=== PATIENT | female | born 1940 | race Caucasian/White ===

== ENCOUNTER 2017-04-02 10:55 | Observation (INO) | payer MEDICARE ==
[~2017-04-02 10:55] MED LIST: ALBU8I INH; AZIT250T74 PO; ECOT81TA2 PO; FLOV44AE INH; GUAI600 PO; PRED10 PO; PRED10PA PO; Z.0.OXYGENDME NC
[2017-04-02 11:00] VITALS: BP 119/65; TEMP 98.2; O2SAT 96
--- NOTE | 2017-04-02 11:04 | PD ---
Physical Exam Time Seen by Provider: 11:02 Narrative 76 y/o female here for evaluation of dizziness, vomiting w/ dry heaves, substernal cp at 340 AM this morning. This lasted 30 minutes. Denies current chest pain. Vital signs reviewed. Seen at triage desk. Awaiting bed placement. Data Data Last Documented VS Vital Signs Date Time Temp Pulse Resp B/P Pulse Ox O2 Delivery O2 Flow Rate FiO2 04/02/17 11:00 98.2 98 15 119/65 96 MDM Medical Record Reviewed: Yes Supervised Visit with ИВАН: Amilcar Rodriguez Apr 02, 2017 11:04
[2017-04-02 11:16] VITALS: BP 140/66; PULSE 92; RESP 18; TEMP 98.1; O2SAT 97
--- NOTE | 2017-04-02 11:38 | PD ---
HPI Chief Complaint: Cardiac Complaint Time Seen by Provider: 11:18 Travel History International Travel<30 days: No Contact w/Intl Traveler<30days: No Traveled to known affect area: No History of Present Illness HPI 76-year-old female came to the emergency room with history of lightheadedness followed by severe chest pain radiating down her left arm at 2 AM today. Patient says she took one or 2 full-strength aspirin and used her oxygen that she takes when necessary and went back to sleep and slowly subsided. However this morning when her son called and she told him what happened he insisted that she should go to the emergency room. Since is currently she just feels weak but otherwise the pain is gone. No history of nausea vomiting. Patient has never experienced this kind of pain before. She had a cardiac catheterization done 5 years ago and at that time she was told that she had clean coronary arteries. Vital signs were otherwise stable. PFSH Past Medical History Narrative Medical List of her past medical, surgical, social and family history was reviewed from the nursing note. 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) Cardiac Catheterization: Yes Cardiovascular Problems: No High Cholesterol: No Chemotherapy: No Chest Pain: No Congestive Heart Failure: No COPD: Yes (DX IN 2011) Cerebrovascular Accident: No Coronary Artery Disease: No Diabetes: No Diminished Hearing: No Endocrine: No Gastrointestinal Disorders: No GERD: Yes Genitourinary: Yes (NOV 2010) Headaches: No Hepatitis: No Hiatal Hernia: No Heparin Induced Thrombocytopen: No Hypertension: No Immune Disorder: No Implanted Vascular Access Dvce: No Kidney Stones: Yes (STENT PLACED AND REMOVED X2) Medical other: No Musculoskeletal: No Neurologic: No Psychiatric: No Reproductive: No Respiratory: Yes Integumentary: No Migraines: No Radiation Therapy: No Renal Failure: No Seizures: No Sickle Cell Disease: No Sleep Apnea: No Thyroid Disease: No Ulcer: No Menopausal: Yes Past Surgical History Abdominal Surgery: No AICD: No Arteriovenous Shunt: No Coronary Stent: Yes Ear Surgery: No Endocrine Surgery: No Eye Surgery: No Genitourinary Surgery: Yes (URETHRAL STENT put in 5 years ago and now is not there) Gynecologic Surgery: No Insulin Pump: No Joint Replacement: No Neurologic Surgery: No Oral Surgery: No Pacemaker: No (hx. of cardiac catherazation) Thoracic Surgery: No Other Surgery: No (HAS CYSTITIS AND A CANCER REMOVED FROM HER FACE) Social History Alcohol Use: No Tobacco Use: No Substance Use: No Allergies-Medications (Allergen,Severity, Reaction): Coded Allergies: Codeine (Verified Allergy, Severe, N/V/PASSING OUT, 05/28/16) Hydrocodone (Verified Allergy, Severe, Tingling, 05/28/16) Levaquin (Verified Allergy, Severe, 05/28/16) Lortab (Verified Allergy, Severe, Shortness of Breath, 05/28/16) Macrobid (Verified Allergy, Severe, Tingling, 05/28/16) Prevacid (Verified Allergy, Severe, 05/28/16) unrecalled reaction Tylenol (Verified Allergy, Severe, ITCHING, NAUSEA, 05/28/16) Comments List of her allergies reviewed from the nursing note. Reported Meds & Prescriptions Reported Meds & Active Scripts Active Reported Ergocalciferol 50,000 Unit Cap 50,000 Units PO SUNDAY Albuterol Neb (Albuterol Sulfate) 2.5 Mg/3 Ml Neb 2.5 Mg NEB Q6HR NEB PRN While awake Eq Mucus ER (Guaifenesin) 600 Mg Tab 600 Mg PO BID PRN Flovent Hfa 10.6 GM Inh (Fluticasone Propionate) 44 Mcg/Act Inh 2 Puff INH BID Use daily at the same time. Ventolin Hfa 18 GM Inh (Albuterol Sulfate) 90 Mcg/Act Aer 2 Puff INH Q6H PRN Aspirin EC (Aspirin) 81 Mg Tabdr 81 Mg PO DAILY Prednisone 10 Mg Tab 10 Mg PO DAILY Narrative Medication List of her home medications reviewed from the nursing note. Review of Systems Except as stated in HPI: all other systems reviewed are Neg Physical Exam Narrative GENERAL: Awake, alert, elderly, frail SKIN: Focused skin assessment warm/dry. HEAD: Atraumatic. Normocephalic. EYES: Pupils equal and round. No scleral icterus. No injection or drainage. ENT: No nasal bleeding or discharge. Mucous membranes pink and moist. NECK: Trachea midline. No JVD. CARDIOVASCULAR: Regular rate and rhythm. No murmur appreciated. RESPIRATORY: No accessory muscle use. Clear to auscultation. Breath sounds equal bilaterally. GASTROINTESTINAL: Abdomen soft, non-tender, nondistended. Hepatic and splenic margins not palpable. MUSCULOSKELETAL: No obvious deformities. No clubbing. No cyanosis. No edema. NEUROLOGICAL: Awake and alert. No obvious cranial nerve deficits. Motor grossly within normal limits. Normal speech. PSYCHIATRIC: Appropriate mood and affect; insight and judgment normal. Data Data Last Documented VS Vital Signs Date Time Temp Pulse Resp B/P Pulse Ox O2 Delivery O2 Flow Rate FiO2 04/02/17 12:11 85 114/63 140/78 04/02/17 12:07 95 Room Air 04/02/17 12:07 18 04/02/17 11:16 98.1 Orders Electrocardiogram (04/02/17 11:47) Basic Metabolic Panel (Bmp) (04/02/17 11:47) Ckmb (Isoenzyme) Profile (04/02/17 11:47) Complete Blood Count With Diff (04/02/17 11:47) Magnesium (Mg) (04/02/17 11:47) Prothrombin Time / Inr (Pt) (04/02/17 11:47) Act Partial Throm Time (Ptt) (04/02/17 11:47) Troponin I (04/02/17 11:47) Chest, Single Ap (04/02/17 11:47) Ecg Monitoring (04/02/17 11:47) Bilateral Bp Monitoring (04/02/17 11:47) Iv Access Insert/Monitor (04/02/17 11:47) Oximetry (04/02/17 11:47) Oxygen Administration (04/02/17 11:47) Sodium Chloride 0.9% Flush (Ns Flush) (04/02/17 12:00) Labs Laboratory Tests Test 04/02/17 12:05 White Blood Count 6.0 TH/MM3 Red Blood Count 4.79 MIL/MM3 Hemoglobin 13.7 GM/DL Hematocrit 42.6 % Mean Corpuscular Volume 88.9 FL Mean Corpuscular Hemoglobin 28.6 PG Mean Corpuscular Hemoglobin 32.2 % Concent Red Cell Distribution Width 14.9 % Platelet Count 200 TH/MM3 Mean Platelet Volume 9.3 FL Neutrophils (%) (Auto) 85.4 % Lymphocytes (%) (Auto) 8.6 % Monocytes (%) (Auto) 4.4 % Eosinophils (%) (Auto) 1.0 % Basophils (%) (Auto) 0.6 % Neutrophils # (Auto) 5.1 TH/MM3 Lymphocytes # (Auto) 0.5 TH/MM3 Monocytes # (Auto) 0.3 TH/MM3 Eosinophils # (Auto) 0.1 TH/MM3 Basophils # (Auto) 0.0 TH/MM3 CBC Comment DIFF FINAL Differential Comment Prothrombin Time 10.6 SEC Prothromb Time International 1.0 RATIO Ratio Activated Partial 23.7 SEC Thromboplast Time Sodium Level 141 MEQ/L Potassium Level 4.4 MEQ/L Chloride Level 106 MEQ/L Carbon Dioxide Level 29.5 MEQ/L Anion Gap 6 MEQ/L Blood Urea Nitrogen 10 MG/DL Creatinine 0.60 MG/DL Estimat Glomerular Filtration 97 ML/MIN Rate Random Glucose 104 MG/DL Calcium Level 8.7 MG/DL Magnesium Level 2.4 MG/DL Total Creatine Kinase 60 U/L Troponin I LESS THAN 0.02 NG/ML MDM Medical Decision Making Medical Screen Exam Complete: Yes Emergency Medical Condition: Yes Medical Record Reviewed: Yes Interpretation(s) Twelve-lead EKG was reviewed by me. Normal sinus rhythm, left axis deviation, old anterior and inferior ND, nonspecific ST-T wave changes. Heart rate of 96 bpm. EKG is unchanged from April 2016. Differential Diagnosis ACS, non-STEMI, PE Narrative Course 12:30 PM awaiting for blood test results and chest x-ray. I told the patient that her symptoms were strongly suggestive of possible coronary artery disease until proven otherwise. The symptoms could also somehow be related to a massive PE. However patient did not have recent long distance immobilization due to travel or surgery. And she has never had previous PE. Given the fact that she is 76 years old and new onset of PE is highly unlikely, hence I have not ordered any further workup for that. The blood tests are within normal limits she will be admitted for overnight observation. Procedures EKG Prior to Arrival: No Diagnosis Primary Impression: Chest pain Qualified Code: R07.9 - Chest pain, unspecified type Admitting Information Admitting Physician Requests: Observation Monty Candelario MD Apr 02, 2017 11:38 Monty Candelario MD Apr 02, 2017 11:38
[2017-04-02] MEDS ORDERED: SODIUM CHLORIDE 0.9% FLUSH 10 ML FLUSH IVF PRN (12:00)
[2017-04-02 12:07] VITALS: RESP 18; O2SAT 95
[2017-04-02 12:11] VITALS: BP_SYST 114; BP_SYST 140; BP_DIAS 63; BP_DIAS 78; PULSE 85
[2017-04-02 12:33] LABS: AUTOMATED NEUTROPHIL # 5.1 TH/MM3 (1.8-7.7); BASOPHIL % 0.6 % (0.0-2.0); EOSINOPHIL # 0.1 TH/MM3 (0-0.4); HEMATOCRIT 42.6 % (35.0-46.0); HEMO FLAGS DIFF FINAL; LYMPH % 8.6 % (9.0-44.0); LYMPHOCYTE # 0.5 TH/MM3 (1.0-4.8); MEAN CELL VOLUME 88.9 FL (80.0-100.0); MEAN CORPUSCULAR HEMOGLOBIN 28.6 PG (27.0-34.0); MEAN CORPUSCULAR HGB CONC 32.2 % (32.0-36.0); MONO % 4.4 % (0.0-8.0); NEUT % 85.4 % (16.0-70.0); PLATELET COUNT 200 TH/MM3 (150-450); RED BLOOD COUNT 4.79 MIL/MM3 (4.00-5.30); RED CELL DISTRIBUTION WIDTH 14.9 % (11.6-17.2)
[2017-04-02 12:38] LABS: APTT (PATIENT) 23.7 SEC (24.3-30.1); PROTHROMBIN TIME - PATIENT 10.6 SEC (9.8-11.6)
--- NOTE | 2017-04-02 12:39 | RADRPT ---
EXAM DATE/TIME: 04/02/2017 12:16 [facility] COMPARISON: CT PULMONARY ANGIOGRAM, May 28, 2016, 13:27. CHEST SINGLE AP, May 28, 2016, 10:58. INDICATIONS : Chest pressure and discomfort. MEDICAL HISTORY : Chronic obstructive pulmonary disease. Cardiovascular disease. SURGICAL HISTORY : Cardiac cath. Coronary stent. ENCOUNTER: Initial ACUITY: 1 day PAIN SCORE: 3/10 LOCATION: Bilateral chest FINDINGS: The heart is normal in size. The mediastinal contours are within normal limits. There are advanced CO PD changes within the pulmonary parenchyma. The lungs are stable compared to previous examination lisa ed 05/28/16. The visualized bony structures are grossly intact. CONCLUSION: 1. Advanced COPD changes. Stable compared to previous exam. Serafin Bensno MD on April 02, 2017 at 12:37 Board Certified Radiologist. This report was verified electronically.
[2017-04-02 12:58] LABS: ANION GAP 6 MEQ/L (5-15); BICARBONATE 29.5 MEQ/L (21.0-32.0); BLOOD UREA NITROGEN 10 MG/DL (7-18); CHLORIDE 106 MEQ/L (98-107); GLOMERULAR FILTRATION RATE 97 ML/MIN (>89); MAGNESIUM 2.4 MG/DL (1.5-2.5); SODIUM (NA) 141 MEQ/L (136-145)
[2017-04-02 13:01] LABS: CREATINE KINASE 60 U/L (26-192); POTASSIUM 4.4 MEQ/L (3.5-5.1)
[2017-04-02] MEDS ORDERED: PRED10 PO (14:33)
[2017-04-02] MEDS ORDERED: ASPI81TA11 PO (14:33)
[2017-04-02] MEDS ORDERED: VENTAER INH (14:33)
[2017-04-02] MEDS ORDERED: GUAI1TAB15 PO (14:34)
[2017-04-02] MEDS ORDERED: FLUTI44I INH (14:34)
[2017-04-02] MEDS ORDERED: ALBU0.08 NEB (14:35)
[2017-04-02] MEDS ORDERED: ERGO1CAP30 PO (14:35)
[2017-04-02] MEDS ORDERED: NALOXONE HCL 0.4 MG/ML AMP IV PRN (15:15)
[2017-04-02] MEDS ORDERED: ACETAMINOPHEN 325 MG TAB PO PRN (15:15)
[2017-04-02] MEDS ORDERED: ONDANSETRON HCL 4 MG/2 ML VIAL IVP PRN (15:15)
[2017-04-02] MEDS ORDERED: SODIUM CHLORIDE 0.9% FLUSH 10 ML FLUSH IV FLUSH PRN (15:15)
[2017-04-02] MEDS ORDERED: ALBUTEROL SULFATE 90 MCG/ACT HFA 18 GM INHALER INH PRN (15:30)
[2017-04-02] MEDS ORDERED: ALBUTEROL SULFATE 90 MCG/ACT HFA 8 GM INHALER INH PRN (15:30)
[2017-04-02 16:55] VITALS: BP 100/63; PULSE 79; RESP 20; TEMP 97.8; O2SAT 98
--- NOTE | 2017-04-02 17:28 | HHI.HP ---
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 Patient is well known to the undersigned from previous admissions for COPD. States that she had actually been doing well and her COPD had been stable, she follows up regularly with Dr. Gil's nurse practitioner. Patient endorses that a few weeks ago her partial lower bridge broke and she hasn't been eating very much except for soft foods and nutritional supplements. She's been feeling more weak and fell that she was getting dehydrated. This morning around 3 AM she felt thirsty and got up to the kitchen to have a draining. She drank some water and suddenly started to develop dry heaves. She continued to try to drink water but continued to 2 heaves. After that she developed severe chest discomfort from neck the way down to the epigastric, it was severe. It felt like something was sitting on her and squeezing her. She felt very weak and clammy. She crawled to her bedroom, put on her oxygen and lay back down. She also took 2 full strength aspirin. States that she occasionally has what she calls esophageal spasms and she takes Tums as needed however this pain was different. She saw Dr. Cano approximately in 2011 and had a cardiac catheter that showed normal coronaries. She finally decided to come to the hospital on 11 AM at the prompting of her family. Patient states that the pain is now relieved, shortness of breath is stable. She is on oxygen 24 hours a day. She denies any recent fever, no chills. Troponin was negative. The rest of her laboratory workup was unremarkable. Patient is admitted for further evaluation and treatment. Review of Systems Constitutional: DENIES: Diaphoretic episodes, Fatigue, Fever, Weight gain, Weight loss, Chills, Dizziness, Change in appetite, Night Sweats Endocrine: DENIES: Abnorml menstrual pattern, Heat/cold intolerance, Polydipsia , Polyuria, Polyphagia Eyes: DENIES: Blurred vision, Diplopia, Eye inflammation, Eye pain, Vision loss , Photosensitivity, Double Vision Ears, nose, mouth, throat: DENIES: Tinnitus, Hearing loss, Vertigo, Nasal discharge, Oral lesions, Throat pain, Hoarseness, Ear Pain, Running Nose, Epistaxis, Sinus Pain, Toothache, Odynophagia Respiratory: COMPLAINS OF: Wheezing, Shortness of breath, DENIES: Apneas, Cough, Snoring, Hemoptysis, Sputum production Cardiovascular: COMPLAINS OF: Chest pain, DENIES: Palpitations, Syncope, Dyspnea on Exertion, PND, Lower Extremity Edema, Orthopnea, Claudication Gastrointestinal: DENIES: Abdominal pain, Black stools, Bloody stools, Constipation, Diarrhea, Nausea, Vomiting, Difficulty Swallowing, Anorexia Musculoskeletal: DENIES: Joint pain, Muscle aches, Stiffness, Joint Swelling, Back pain, Neck pain Integumentary: DENIES: Abnormal pigmentation, Pruritus, Rash, Nail changes, Breast masses, Breast skin changes, Nipple discharge Hematologic/lymphatic: DENIES: Bruising, Lymphadenopathy Immunologic/allergic: DENIES: Eczema, Urticaria Neurologic: DENIES: Abnormal gait, Headache, Localized weakness, Paresthesias, Seizures, Speech Problems, Tremor, Poor Balance Psychiatric: DENIES: Anxiety, Confusion, Mood changes, Depression, Hallucinations, Agitation, Suicidal Ideation, Homicidal Ideation, Delusions Past Family Social History Past Medical History End-stage COPD oxygen dependent, Mycobacterium avium infection, cardiomyopathy, recent Echo with EF 55-60%, renal stones, GERD, previous cardiac cath with normal coronaries, recently admitted for chest pain with negative cardiac work up. Has been on mechanical ventilation. Ureter stents, cystoscopy. Pseudomona lung infections. Past Surgical History Cardiac cath Ureteral stents placed and removed Basal cell carcinoma removed from face Cataract surgery Reported Medications Reported Meds & Active Scripts Active Reported Ergocalciferol 50,000 Unit Cap 50,000 Units PO SUNDAY Albuterol Neb (Albuterol Sulfate) 2.5 Mg/3 Ml Neb 2.5 Mg NEB Q6HR NEB PRN While awake Eq Mucus ER (Guaifenesin) 600 Mg Tab 600 Mg PO BID PRN Flovent Hfa 10.6 GM Inh (Fluticasone Propionate) 44 Mcg/Act Inh 2 Puff INH BID Use daily at the same time. Ventolin Hfa 18 GM Inh (Albuterol Sulfate) 90 Mcg/Act Aer 2 Puff INH Q6H PRN Aspirin EC (Aspirin) 81 Mg Tabdr 81 Mg PO DAILY Prednisone 10 Mg Tab 10 Mg PO DAILY Allergies: Coded Allergies: Codeine (Verified Allergy, Severe, N/V/PASSING OUT, 05/28/16) Hydrocodone (Verified Allergy, Severe, Tingling, 05/28/16) Levaquin (Verified Allergy, Severe, 05/28/16) Lortab (Verified Allergy, Severe, Shortness of Breath, 05/28/16) Macrobid (Verified Allergy, Severe, Tingling, 05/28/16) Prevacid (Verified Allergy, Severe, 05/28/16) unrecalled reaction Tylenol (Verified Allergy, Severe, ITCHING, NAUSEA, 05/28/16) Active Ordered Medications Inpatient Medications Albuterol Sulfate (Albuterol Neb) 2.5 mg Q6HR NEB PRN NEB SHORTNESS OF BREATH; Start 04/02/17 at 15:30 Albuterol Sulfate (Ventolin Hfa Inh) 2 puff Q6H PRN INH SHORTNESS OF BREATH; Start 04/02/17 at 15:30 Aspirin (Ecotrin Ec) 81 mg DAILY PO ; Start 04/03/17 at 09:00 Fluticasone Propionate (Flovent Hfa 44 Mcg Inh) 2 puff BID INH ; Start 04/02/17 at 21:00 Heparin Sodium (Porcine) (Heparin Inj) 5,000 units Q12H SQ ; Start 04/02/17 at 16 :00 Naloxone HCl (Narcan Inj) 0.4 mg UNSCH PRN IV SEE LABEL COMMENTS; Start at 15:15 Ondansetron HCl (Zofran Inj) 4 mg Q6H PRN IVP NAUSEA OR VOMITING; Start at 15:15 Prednisone (Deltasone) 10 mg DAILY PO ; Start 04/03/17 at 09:00 Sodium Chloride (NS Flush) 2 ml BID IV FLUSH ; Start 04/02/17 at 21:00 Family History Reviewed, non contributory Social History Has 4 daughters, lives with one daughter who is deaf/mute and grandson. She is independent, still drives and takes care of her own home, finances. Was on hospice. No smoking, no ETOH, no substance abuse. + environmental exposure that lead to frequent pulmonary infections. Physical Exam Vital Signs Vital Signs Date Time Temp Pulse Resp B/P Pulse Ox O2 Delivery O2 Flow Rate FiO2 04/02/17 12:11 85 114/63 140/78 04/02/17 12:07 95 Room Air 04/02/17 12:07 18 95 Room Air 04/02/17 11:16 98.1 92 18 140/66 97 Room Air 04/02/17 11:16 87 18 97 Room Air 04/02/17 11:00 98.2 98 15 119/65 96 Physical Exam GENERAL: This is a thin built, malnourished female. SKIN: Skin fragile, some bruising to the lower extremities. HEAD: Atraumatic. Normocephalic. No temporal or scalp tenderness. EYES: Pupils equal round and reactive. Extraocular motions intact. No scleral icterus. No injection or drainage. ENT: Nose without bleeding, purulent drainage or septal hematoma. Throat without erythema, tonsillar hypertrophy or exudate. Uvula midline. Airway patent. NECK: Trachea midline. No JVD or lymphadenopathy. Supple, nontender, no meningeal signs. CARDIOVASCULAR: Regular rate and rhythm without murmurs, gallops, or rubs. RESPIRATORY: Diminished, prolonged expiratory phase. No distress noted. On oxygen at 2 L. GASTROINTESTINAL: Abdomen soft, non-tender, nondistended. No hepato-splenomegaly , or palpable masses. No guarding. MUSCULOSKELETAL: Extremities without clubbing, cyanosis, or edema. No joint tenderness, effusion, or edema noted. No calf tenderness. Negative Homans sign bilaterally. NEUROLOGICAL: Awake, alert oriented 3. No focal deficits Laboratory Laboratory Tests Test 04/02/17 12:05 White Blood Count 6.0 Red Blood Count 4.79 Hemoglobin 13.7 Hematocrit 42.6 Mean Corpuscular Volume 88.9 Mean Corpuscular Hemoglobin 28.6 Mean Corpuscular Hemoglobin 32.2 Concent Red Cell Distribution Width 14.9 Platelet Count 200 Mean Platelet Volume 9.3 Neutrophils (%) (Auto) 85.4 Lymphocytes (%) (Auto) 8.6 Monocytes (%) (Auto) 4.4 Eosinophils (%) (Auto) 1.0 Basophils (%) (Auto) 0.6 Neutrophils # (Auto) 5.1 Lymphocytes # (Auto) 0.5 Monocytes # (Auto) 0.3 Eosinophils # (Auto) 0.1 Basophils # (Auto) 0.0 CBC Comment DIFF FINAL Differential Comment Prothrombin Time 10.6 Prothromb Time International 1.0 Ratio Activated Partial 23.7 Thromboplast Time Sodium Level 141 Potassium Level 4.4 Chloride Level 106 Carbon Dioxide Level 29.5 Anion Gap 6 Blood Urea Nitrogen 10 Creatinine 0.60 Estimat Glomerular Filtration 97 Rate Random Glucose 104 Calcium Level 8.7 Magnesium Level 2.4 Total Creatine Kinase 60 Troponin I LESS THAN 0.02 Result Diagram: 04/02/17 1205 04/02/17 1205 Assessment and Plan Problem List: (1) Chest pain (2) Oxygen dependent (3) End stage COPD (4) History of MAC infection Assessment and Plan Admit to Dr. Marie 76-year-old female with end-stage COPD on oxygen, presented to the emergency room with severe chest discomfort after she drank water, she had dry heaves, felt clammy. Pain was relieved by aspirin and rest. First set of troponin is negative. Cardiac catheter in 2011 with normal coronaries. -Continue with serial cardiac enzymes -Continue with aspirin -Cardiology has been consulted for evaluation -Continuous cardiac telemetry COPD, oxygen dependent, stable Continue with DuoNeb's -Continue with prednisone 10 mg by mouth daily -Continue with oxygen at 2 L Home medications reviewed, initiated as indicated Heparin for DVT prophylaxis Plan of care discussed with the patient and her son, their questions answered in detail. Plan of care discussed with attending and registered nurse. Further management of the patient will be dependent on the hospital course This patient was seen by myself and Dr. Marie, this H&P is written on her behalf Problem Qualifiers (1) Chest pain: Qualified Code: R07.9 - Chest pain, unspecified type Nela Jay Apr 02, 2017 17:28
[2017-04-02] MEDS ORDERED: CALCIUM CARBONATE 500 MG CHEWABLE TAB CHEW PRN (17:45)
[2017-04-02] MEDS: HEPARIN SODIUM - SQ 10,000 UNITS/ML VIAL SQ SCH (18:32)
[2017-04-02 20:00] VITALS: BP 80/51; PULSE 82; RESP 18; TEMP 96.9; O2SAT 96
[2017-04-02] MEDS: FLUTICASONE PROPIONATE 44 MCG/ACT 10.6 GM INHALER INH SCH (22:35)
[2017-04-02] MEDS: SODIUM CHLORIDE 0.9% FLUSH 10 ML FLUSH IV FLUSH SCH (22:35)
[2017-04-03] VITALS (11 sets, daily range): BP systolic 89–126; BP diastolic 50–68; PULSE 75–85; RESP 16–19; TEMP 96.8–98.8; O2SAT 94–99
--- NOTE | 2017-04-03 05:17 | MB ---
cc: KAYDEN BEE DATE OF 1940 DATE OF CONSULTATION April 02, 2017 REASON FOR CONSULTATION Chest pain. HISTORY OF PRESENT ILLNESS 76-year-old female with a past medical history significant for severe COPD Stage IV on home oxygen, hypertension, bronchiectasis, chronic hypoxia, who came to the emergency department after an episode of lightheadedness and vertigo followed by severe substernal chest pressure around 02:00 a.m. in the morning. The patient reports that the pain went away by itself. She subsequently took aspirin and used her oxygen and the pain subsided. However, this morning her son insisted to come to the emergency department for evaluation. She reports being kind of weak in the last couple of weeks with a decreased p.o. intake and weakness in the setting of toothache problems not allowing her to have a lot of food intake. She denies any cardiac history or interventions. She did have a cardiac catheterization about 5 years ago which was unremarkable and her last echocardiogram done in 2014 shows a normal LV systolic function. Cardiology has been consulted for further management and evaluation of the chest pain. REVIEW OF SYSTEMS Negative except for what is mentioned in the HPI. PAST MEDICAL HISTORY 1. Asthma. 2. Basal cell carcinoma from nose and neck. 3. Chronic COPD end-stage. 4. Hypertension. 5. Kidney stones. 6. Bronchiectasis. 7. . 8. Chronic hypoxia. 9. Menopause. PAST SURGICAL HISTORY Kidney stent surgery. Urethral stent placement and removal. Cardiac catheterization. SOCIAL HISTORY She is a former smoker. Denies illicit drug use or alcohol abuse. FAMILY HISTORY Noncontributory. ALLERGIES CODEINE. HYDROCODONE. LEVAQUIN. LORTAB. MACROBID. PREVACID. TYLENOL. REVIEW OF SYSTEMS Negative except for what is mentioned in HPI. HOME MEDICATIONS 1. Prednisone 10 mg p.o. daily. 2. Aspirin 81 mg p.o. daily. 3. Albuterol inhaler. 4. Flovent inhaler. 5. Guaifenesin 600 mg p.o. b.i.d. p.r.n. 6. Vitamin D 5000 units p.o. on Saturdays. PHYSICAL EXAMINATION VITAL SIGNS: Temperature 97.8, respiratory rate 20, heart rate 79, blood pressure 100/63, O2 sat 100% on room air. GENERAL: Awake, alert, oriented x 3. She looks frail. NECK: No JVD, no carotid bruits. HEART: Regular rate and rhythm. No murmurs, rubs or gallops. LUNGS: Poor inspiratory effort. No accessory muscle use. Breath sounds equal bilaterally. EXTREMITIES: No cyanosis or edema. Pulses throughout. DATA CBC: Hemoglobin 13, hematocrit 42, platelet count 200. Electrolytes: Sodium 141, potassium 4.4, BUN 10, creatinine 0.60. First troponin less than 0.02. INR 1. CHEST X-RAY Advanced COPD changes, stable. EKG Normal sinus rhythm with no acute ST changes. ASSESSMENT AND PLAN 76-year-old female with cardiac risk factors that include hypertension, age and former smoker who presents complaining of chest pain and pressure concerning for angina. She remains afebrile and hemodynamically stable with no active cardiac complaints at this moment. First set of cardiac enzymes negative. EKG with no acute ST changes. At this time I agree with admission to the hospital to rule out SD by cardiac enzymes. She should have a 2-D echocardiogram to assess LV systolic function as well as Lexiscan stress test to risk stratify her CAD. In the meantime continue optimization of CAD. Continue her aspirin. Get a lipid profile. Given history of severe COPD, I would not recommend beta- blockers. Continue her medications for the COPD per primary team. If Lexiscan negative she can follow up with cardiology as outpatient. Thank you for the opportunity to take part in the care of this patient. Further therapy to be determined MD JANI Dwyer/RUDDY /5:01 PM /5:00 AM GEOVANNY
[2017-04-03] MEDS: HEPARIN SODIUM - SQ 10,000 UNITS/ML VIAL SQ SCH ×2 (06:01→17:35)
--- NOTE | 2017-04-03 08:15 | HHI.PR ---
Subjective Remarks no cp chronically sob no fever no epigastric discomfort no heartburn felt well overnight spoke to Dr. Maria, poss STT test Objective Objective Results - Vital Signs Date Time Temp Pulse Resp B/P Pulse Ox O2 Delivery O2 Flow Rate FiO2 04/03/17 07:37 96.8 76 16 94/57 99 04/03/17 04:33 98.3 77 18 107/57 94 04/03/17 00:28 78 04/03/17 00:14 98.4 79 18 108/58 94 04/02/17 20:00 96.9 82 18 80/51 96 04/02/17 16:57 Nasal Cannula 2.00 04/02/17 16:55 97.8 79 20 100/63 98 04/02/17 12:11 85 114/63 140/78 04/02/17 12:07 95 Room Air 04/02/17 12:07 18 95 Room Air 04/02/17 11:16 98.1 92 18 140/66 97 Room Air 04/02/17 11:16 87 18 97 Room Air 04/02/17 11:00 98.2 98 15 119/65 96 I/O 04/02/17 04/02/17 04/02/17 04/03/17 04/03/17 04/03/17 07:00 15:00 23:00 07:00 15:00 23:00 Intake Total 480 ml Balance 480 ml Intake Oral 480 ml # Voids 2 # Bowel Movements 0 Result Diagram: 04/02/17 1205 04/02/17 1205 Other Results Laboratory Tests Test 04/02/17 04/02/17 12:05 23:16 White Blood Count 6.0 Red Blood Count 4.79 Hemoglobin 13.7 Hematocrit 42.6 Mean Corpuscular Volume 88.9 Mean Corpuscular Hemoglobin 28.6 Mean Corpuscular Hemoglobin 32.2 Concent Red Cell Distribution Width 14.9 Platelet Count 200 Mean Platelet Volume 9.3 Neutrophils (%) (Auto) 85.4 Lymphocytes (%) (Auto) 8.6 Monocytes (%) (Auto) 4.4 Eosinophils (%) (Auto) 1.0 Basophils (%) (Auto) 0.6 Neutrophils # (Auto) 5.1 Lymphocytes # (Auto) 0.5 Monocytes # (Auto) 0.3 Eosinophils # (Auto) 0.1 Basophils # (Auto) 0.0 CBC Comment DIFF FINAL Differential Comment Prothrombin Time 10.6 Prothromb Time International 1.0 Ratio Activated Partial 23.7 Thromboplast Time Sodium Level 141 Potassium Level 4.4 Chloride Level 106 Carbon Dioxide Level 29.5 Anion Gap 6 Blood Urea Nitrogen 10 Creatinine 0.60 Estimat Glomerular Filtration 97 Rate Random Glucose 104 Calcium Level 8.7 Magnesium Level 2.4 Total Creatine Kinase 60 Troponin I LESS THAN 0.02 LESS THAN 0.02 ROS General: No: Fatigue, Weakness HEENT: No: Sore Throat, Dysphagia Cardiac: No: Chest Pain, Edema, Palpitations Pulmonary: SOB (chronic ), No: Cough, Wheezing, Other GI: No: Abdominal Pain, BM, Diarrhea, N/V /SET DECORATOR: No: Dysuria, Urgency Neuro/MS: No: Lightheaded, Confusion Psych: No: Anxiety, Depression Skin: No: Itching, Rash Physical Exam Physical Exam GENERAL: This is a thin built, malnourished female. SKIN: Skin fragile, some bruising to the lower extremities. HEAD: Atraumatic. Normocephalic. No temporal or scalp tenderness. EYES: Pupils equal round and reactive. Extraocular motions intact. No scleral icterus. No injection or drainage. ENT: Nose without bleeding, purulent drainage or septal hematoma. Throat without erythema, tonsillar hypertrophy or exudate. Uvula midline. Airway patent. NECK: Trachea midline. No JVD or lymphadenopathy. Supple, nontender, no meningeal signs. CARDIOVASCULAR: Regular rate and rhythm without murmurs, gallops, or rubs. RESPIRATORY: Diminished, prolonged expiratory phase. No distress noted. On oxygen at 2 L. GASTROINTESTINAL: Abdomen soft, non-tender, nondistended. No hepato-splenomegaly , or palpable masses. No guarding. MUSCULOSKELETAL: Extremities without clubbing, cyanosis, or edema. No joint tenderness, effusion, or edema noted. No calf tenderness. Negative Homans sign bilaterally. NEUROLOGICAL: Awake, alert oriented 3. No focal deficits Urinary Catheter: No Vascular Central Line Catheter: No A/P Diagnosis: (1) Chest pain (2) Oxygen dependent (3) End stage COPD (4) History of MAC infection (5) Dyspepsia Assessment and Plan 76-year-old female with end-stage COPD on oxygen, presented to the emergency room with severe chest discomfort after she drank water, she had dry heaves, felt clammy. Pain was relieved by aspirin and rest. First set of troponin is negative. Cardiac catheter in 2011 with normal coronaries. -serial cardiac enzymes negative -Continue with aspirin -Dr. Maria evaluated, recommended STT, no order. -Lipid profile today -Continuous cardiac telemetry -unable to have BB due to severe COPD Dyspepsia -Tums PRN -Protonix 40 mg po daily COPD, oxygen dependent, stable Continue with DuoNeb's -Continue with prednisone 10 mg by mouth daily -Continue with oxygen at 2 L Heparin for DVT prophylaxis chest pain free F/U after STT, if negative, poss dc later today D/W RN D/W Dr. Marie D/W pt This patient was seen by myself and Dr. Marie, this note is written on her behalf Problem Qualifiers (1) Chest pain: Qualified Code: R07.9 - Chest pain, unspecified type Nela Jay Apr 03, 2017 08:15
[2017-04-03] MEDS: SODIUM CHLORIDE 0.9% FLUSH 10 ML FLUSH IV FLUSH SCH ×2 (09:03→20:41)
[2017-04-03] MEDS: PANTOPRAZOLE SOD 40 MG DELAYED RELEASE TAB PO SCH (09:03)
[2017-04-03] MEDS: predniSONE 10 MG TAB PO SCH (09:03)
[2017-04-03] MEDS: ASPIRIN EC 81 MG TABEC PO SCH (09:03)
[2017-04-03] MEDS: FLUTICASONE PROPIONATE 44 MCG/ACT 10.6 GM INHALER INH SCH ×2 (09:03→20:41)
[2017-04-03 09:24] LABS: AUTOMATED NEUTROPHIL # 2.9 TH/MM3 (1.8-7.7); BASOPHIL # 0.1 TH/MM3 (0-0.2); BASOPHIL % 1.2 % (0.0-2.0); EOSINOPHIL # 0.2 TH/MM3 (0-0.4); EOSINOPHIL % 4.8 % (0.0-4.0); HEMATOCRIT 38.7 % (35.0-46.0); HEMO FLAGS DIFF FINAL; LYMPH % 26.9 % (9.0-44.0); LYMPHOCYTE # 1.4 TH/MM3 (1.0-4.8); MEAN CELL VOLUME 86.5 FL (80.0-100.0); MEAN CORPUSCULAR HEMOGLOBIN 28.9 PG (27.0-34.0); MEAN CORPUSCULAR HGB CONC 33.4 % (32.0-36.0); NEUT % 55.1 % (16.0-70.0); PLATELET COUNT 181 TH/MM3 (150-450); RED BLOOD COUNT 4.47 MIL/MM3 (4.00-5.30); RED CELL DISTRIBUTION WIDTH 14.4 % (11.6-17.2); WHITE BLOOD COUNT 5.2 TH/MM3 (4.0-11.0)
[2017-04-03 09:37] LABS: ANION GAP 5 MEQ/L (5-15); BICARBONATE 30.1 MEQ/L (21.0-32.0); BLOOD UREA NITROGEN 13 MG/DL (7-18); CHLORIDE 105 MEQ/L (98-107); GLOMERULAR FILTRATION RATE 117 ML/MIN (>89); SODIUM (NA) 140 MEQ/L (136-145)
[2017-04-03 10:01] LABS: HDL CHOLESTEROL 82.9 MG/DL (40.0-60.0)
[2017-04-03] MEDS: RESP: ALBUTEROL 2.5 MG/3 ML NEB (PRN) NEB ×2 (12:14→20:51)
--- NOTE | 2017-04-03 21:48 | EKG ---
Date Performed: 04/02/2017 Time Performed: 11:12:41 PTAGE: 76 years EKG: Sinus rhythm MARKED LEFT AXIS DEVIATION MINIMAL VOLTAGE CRITERIA FOR LVH, CONSIDER NORMAL VARIANT INFERIOR MYOCAR DIAL INFARCTION Since previous tracing, no significant change noted ABNORMAL ECG PREVIOUS TRACING : 05/28/2016 09.48 DOCTOR: Mike Pimentel Interpretating Date/Time 04/03/2017 21:45:51
[2017-04-04 04:00] VITALS: BP 102/55; PULSE 74; RESP 18; TEMP 96.8; O2SAT 98
[2017-04-04] MEDS: HEPARIN SODIUM - SQ 10,000 UNITS/ML VIAL SQ SCH ×2 (04:24→16:00)
[2017-04-04 07:41] VITALS: BP 114/60; PULSE 86; RESP 18; TEMP 97.6; O2SAT 98
[2017-04-04 08:10] VITALS: O2SAT 94
[2017-04-04] MEDS: RESP: ALBUTEROL 2.5 MG/3 ML NEB (PRN) NEB (08:10)
[2017-04-04] MEDS: predniSONE 10 MG TAB PO SCH (09:00)
[2017-04-04] MEDS: FLUTICASONE PROPIONATE 44 MCG/ACT 10.6 GM INHALER INH SCH (09:00)
[2017-04-04] MEDS: ASPIRIN EC 81 MG TABEC PO SCH (09:00)
[2017-04-04] MEDS: PANTOPRAZOLE SOD 40 MG DELAYED RELEASE TAB PO SCH (09:00)
[2017-04-04] MEDS: SODIUM CHLORIDE 0.9% FLUSH 10 ML FLUSH IV FLUSH SCH (09:00)
--- NOTE | 2017-04-04 09:18 | HHI.PR ---
Subjective Remarks Resting in bed Awake, communicative Denies any chest pain No shortness of breath Febrile (Teri Mead) Objective Objective Results - Vital Signs Date Time Temp Pulse Resp B/P Pulse Ox O2 Delivery O2 Flow Rate FiO2 04/04/17 08:10 94 Nasal Cannula 2.00 04/04/17 07:41 97.6 86 18 114/60 98 04/04/17 04:00 96.8 74 18 102/55 98 04/03/17 23:52 97.3 75 18 89/50 98 04/03/17 23:52 94/55 04/03/17 23:20 80 04/03/17 19:25 98 Nasal Cannula 2.00 04/03/17 17:16 98.8 78 18 97/54 97 04/03/17 12:10 96 Nasal Cannula 2.00 04/03/17 11:54 75 04/03/17 11:34 98.1 85 19 126/68 97 I/O 04/03/17 04/03/17 04/03/17 04/04/17 04/04/17 04/04/17 07:00 15:00 23:00 07:00 15:00 23:00 Intake Total 358 ml 100 ml Balance 358 ml 100 ml Intake Oral 358 ml 100 ml # Voids 2 # Bowel Movements 0 (Teri Mead) Result Diagram: 04/03/17 0825 04/03/17 0825 ROS General: Weakness Cardiac: Chest Pain (generalized none for now) Pulmonary: SOB (awakens with some mild shortness of breath, currently receiving DuoNeb treatments), Other (continue oxygen) (Teri Mead) Physical Exam Physical Exam PHYSICAL EXAMINATION GENERAL: This is a elderly female mild shortness of breath when awakened. She is awake and answering questions appropriately HEAD: Normocephalic , atraumatic OROPHARYNGEAL: Oropharynx without erythema or edema. NECK: Supple. Trachea midline CARDIAC: Regular rhythm, regular rate, S1 and S2 are heard. No murmurs rubs or gallops LUNGS: Diminished to auscultation bilaterally. Mild expiratory wheeze noted ABDOMEN: Soft, nontender, active bowel sounds EXTREMITIES: no edema. No obvious deformities NEUROLOGICAL: Patient mood and affect appropriate. Tongue is midline,, speech clear SKIN:Warm and moist, dry Objective Remarks Understand I'm having more tests today. continue to have some shortness of breath (Teri Mead) A/P Assessment and Plan (1) Chest pain (2) Oxygen dependent (3) End stage COPD (4) History of MAC infection (5) Dyspepsia Assessment and Plan Vital signs reviewed normal trends for now Labs reviewed Monitor bowel regimen serial cardiac enzymes negative Dr. Maria evaluated, appreciate input Continued telemetry and monitor chest pain and shortness of breath Positive stress test, planned for further testing per cardiology COPD, oxygen dependent, probable end-stage DuoNeb's Oxygen continuous, monitor shortness of breath to be cardiac in origin or COPD, or both Heparin for DVT prophylaxis PUD prophylaxis, GERD (Teri Mead) Assessment and Plan patient seen and examined in am no chest pain awaiting stress test today will follow results d/w pt no family at bedside discussed with nursing staff f/w Teri HARO (Yeyn Marie MD) Teri Mead Apr 04, 2017 09:18 Yeny Marie MD Apr 04, 2017 14:52
[2017-04-04 11:29] VITALS: BP 93/58; PULSE 74; RESP 18; TEMP 97.6; O2SAT 97
[2017-04-04 12:45] VITALS: PULSE 77
[2017-04-04] MEDS ORDERED: REGADENOSON INJ 0.4 MG/5 ML SYR ONE (13:21)
--- NOTE | 2017-04-04 14:42 | ECHRPT ---
Indication: Atherosclerotic heart disease of [place] coronary artery with unspecified angina pectoris CONCLUSIONS The left ventricular systolic function is normal with an estimated ejection fraction of 55%. The right atrial size is mildly dilated. Posterior MV leaflet prolapse. Mild mitral valve regurgitation. Mild mitral annular calcification. Mild aortic sclerosis. Mild to moderate aortic valve regurgitation. There is mild tricuspid valve regurgitation. BP: 94 / 57 HR: 76 Rhythm: Sinus MEASUREMENTS (Male / Female) Normal Values Technical Quality: 2D ECHO LV Diastolic Diameter PLAX 4.0 cm 4.2 - 5.9 / 3.9 - 5.3 cm LV Systolic Diameter PLAX 3.2 cm IVS Diastolic Thickness 0.7 cm 0.6 - 1.0 / 0.6 - 0.9 cm LVPW Diastolic Thickness 0.7 cm 0.6 - 1.0 / 0.6 - 0.9 cm LV Relative Wall Thickness 0.3 RV Internal Dim ED PLAX 2.0 cm LA Systolic Diameter LX 3.6 cm 3.0 - 4.0 / 2.7 - 3.8 cm M-MODE Aortic Root Diameter MM 3.5 cm AV Cusp Separation MM 2.0 cm DOPPLER MR Peak Velocity 494.0 cm/s MR Peak Gradient 97.6 mmHg Mitral E Point Velocity 58.7 cm/s Mitral A Point Velocity 59.7 cm/s Mitral E to A Ratio 1.0 LV E' Lateral Velocity 9.0 cm/s Mitral E to LV E' Lateral Ratio 6.5 LV E' Septal Velocity 5.1 cm/s Mitral E to LV E' Septal Ratio 11.6 TR Peak Velocity 197.0 cm/s TR Peak Gradient 15.5 mmHg FINDINGS Left Ventricle The left ventricular systolic function is normal with an estimated ejection fraction of 55%. Right Ventricle Normal right ventricular size and systolic function. Left Atrium The left atrial size is normal. Right Atrium The right atrial size is mildly dilated. Atrial Septum Normal atrial septal thickness without atrial level shunting by limited color doppler interrogation. Aorta The aortic root and proximal ascending aorta are normal in size on limited imaging. Mitral Valve Posterior MV leaflet prolapse. Mild mitral valve regurgitation. Mild mitral annular calcification. Aortic Valve Mild aortic sclerosis. Mild to moderate aortic valve regurgitation. Tricuspid Valve There is mild tricuspid valve regurgitation. Pulmonary Valve The pulmonary valve is not well visualized. Vessels The inferior vena cava is normal in size. Pericardium No pericardial effusion. Aldair Goldberg MD, FACC Edited by: [employer] CV Vending Machine Attendant (Electronically Signed) Final Date:04 April 2017 14:41 Amended: 05 April 2017 13:30 MTDD
[2017-04-04 15:30] VITALS: BP 100/57; PULSE 80; RESP 18; TEMP 98; O2SAT 95
--- NOTE | 2017-04-04 15:30 | RADRPT ---
EXAM DATE/TIME: 04/04/2017 12:55 [facility] COMPARISON: No previous studies available for comparison. INDICATIONS : Substernal chest pain. Angina. DOSE: 25.8 mCi Tc99m Myoview at stress. 8.3 mCi Tc99m Myoview at rest. 0.4 mg Lexiscan STRESS SYMPTOMS: Short of breath. EJECTION FRACTION: > 70% MEDICAL HISTORY : Hypertension. Carcinoma, basal cell. Chronic obstructive pulmonary disease. Asthma. SURGICAL HISTORY : Cardiac cath and kidney stent placed and removed. ENCOUNTER: Initial ACUITY: 3 days PAIN SCALE: 2/10 LOCATION: Substernal chest TECHNIQUE: The patient underwent pharmacologic stress with infusion of prescribed dose. Continuous ECG tracing was monitored during stress. Gated SPECT imaging was performed after stress and conventional SPECT i maging was performed at rest. The examination was performed on a SPECT/CT scanner, both attenuation and non-corrected datasets were reviewed. FINDINGS: DISTRIBUTION: The maximum perfused segment at stress is in the anterior wall. PERFUSION STUDY: The pattern of perfusion at stress is within normal limits. GATED STUDY: There is intact wall motion and thickening without hypokinetic or dyskinetic segments. CONCLUSION: 1. No reversible perfusion defect to indicate stress-induced myocardial ischemia identified. RISK CATEGORY: Low (<1% Annual Mortality Rate) Serafin Benson MD on April 04, 2017 at 15:27 Board Certified Radiologist. This report was verified electronically.
--- NOTE | 2017-04-05 18:19 | HHI.DS ---
Discharge Summary Admission Date Apr 02, 2017 at 14:48 Discharge Date: Apr 04, 2017 Admitting Diagnosis chest pain, rule out ACS (1) Chest pain Diagnosis: Principal (2) Oxygen dependent Diagnosis: Principal (3) End stage COPD Diagnosis: Secondary (4) History of MAC infection Diagnosis: Secondary (5) Dyspepsia Diagnosis: Principal Brief History This was a 76-year-old white female with known history of end-stage COPD on oxygen, prior history of MAC, hypertension, renal stones, GERD. Patient was well known to the undersigned from previous admissions for COPD. Stated that she had actually been doing well and her COPD had been stable, she followed up regularly with Dr. Gil's nurse practitioner. Patient endorsed that a few weeks ago her partial lower bridge broke and she hasn't been eating very much except for soft foods and nutritional supplements. She's been feeling more weak and fell that she was getting dehydrated. This morning around 3 AM she felt thirsty and got up to the kitchen to have a draining. She drank some water and suddenly started to develop dry heaves. She continued to try to drink water but continued to 2 heaves. After that she developed severe chest discomfort from neck the way down to the epigastric, it was severe. It felt like something was sitting on her and squeezing her. She felt very weak and clammy. She crawled to her bedroom, put on her oxygen and lay back down. She also took 2 full strength aspirin. States that she occasionally has what she calls esophageal spasms and she takes Tums as needed however this pain was different. She saw Dr. Cano approximately in 2011 and had a cardiac catheter that showed normal coronaries. She finally decided to come to the hospital on 11 AM at the prompting of her family. Patient states that the pain is now relieved, shortness of breath is stable. She is on oxygen 24 hours a day. She denies any recent fever, no chills. Troponin was negative. The rest of her laboratory workup was unremarkable. Patient is admitted for further evaluation and treatment. CBC/BMP: 04/03/17 0825 04/03/17 0825 Significant Findings Laboratory Tests Test 04/02/17 04/03/17 23:16 08:25 Troponin I LESS THAN 0.02 LESS THAN 0.02 NG/ML NG/ML (0.02-0.05) (0.02-0.05) Monocytes (%) (Auto) 12.0 % (0.0-8.0) Eosinophils (%) (Auto) 4.8 % (0.0-4.0) Cholesterol Level 210 MG/DL (120-200) LDL Cholesterol 112 MG/DL (0-99) HDL Cholesterol 82.9 MG/DL (40.0-60.0) Imaging Last Impressions Myocardial Perfusion Scan Nuc Med 04/04/17 0000 Signed Impressions: Service Date/Time: Tuesday, April 04, 2017 12:55 - CONCLUSION: 1. No reversible perfusion defect to indicate stress-induced myocardial ischemia identified. RISK CATEGORY: Low (<1%% Annual Mortality Rate) Serafin Benson MD Chest X-Ray 04/02/17 1147 Signed Impressions: Service Date/Time: Sunday, April 02, 2017 12:16 - CONCLUSION: 1. Advanced COPD changes. Stable compared to previous exam. Serafin Benson MD PE at Discharge Physical Exam PHYSICAL EXAMINATION GENERAL: This is a elderly female mild shortness of breath when awakened. She is awake and answering questions appropriately HEAD: Normocephalic , atraumatic OROPHARYNGEAL: Oropharynx without erythema or edema. NECK: Supple. Trachea midline CARDIAC: Regular rhythm, regular rate, S1 and S2 are heard. No murmurs rubs or gallops LUNGS: Diminished to auscultation bilaterally. Mild expiratory wheeze noted ABDOMEN: Soft, nontender, active bowel sounds EXTREMITIES: no edema. No obvious deformities NEUROLOGICAL: Patient mood and affect appropriate. Tongue is midline,, speech clear SKIN:Warm and moist, dry Hospital Course These are the diagnoses that were used to treat this patient during this brief hospital stay (1) Chest pain (2) Oxygen dependent (3) End stage COPD (4) History of MAC infection (5) Dyspepsia Vital signs reviewed normal trends noted during her hospital stay Labs reviewed and treated according to her needs Monitor bowel regimen that any acute issues serial cardiac enzymes negative , no acute AR Dr. Maria evaluated, appreciate input Continued telemetry and monitor chest pain and shortness of breath stress test, negative for ischemia. patient was prepared for further testing COPD, oxygen dependent, probable end-stage DuoNeb's Oxygen continuous, monitor shortness of breath to be cardiac in origin or COPD, or both Heparin for DVT prophylaxis PUD prophylaxis, GERD This patient was followed and seen per Dr. josue on day of discharge patient seen and examined in am no chest pain awaiting stress test today will follow results d/w pt no family at bedside discussed with nursing staff f/w Teri HARO Patient's stress test showed no ischemia, she was medically cleared to discharge and follow-up with her PCP, as well as cardiology if needed Pt Condition on Discharge: Stable Discharge Disposition: Discharge Home Discharge Instructions DIET: Follow Instructions for: Heart Healthy Diet Activities you can perform: Regular-No Restrictions Continued Medications: Albuterol 18 GM Inh (Ventolin Hfa 18 GM Inh) 90 Mcg/Act Aer 2 PUFF INH Q6H PRN SHORTNESS OF BREATH #1 Ref 0 INHALER Albuterol Neb (Albuterol Neb) 2.5 Mg/3 Ml Neb 2.5 MG NEB Q6HR NEB While awake PRN SHORTNESS OF BREATH #60 Ref [address] (Aspirin EC) 81 Mg Tabdr 81 MG PO DAILY Ref 0 TAB Ergocalciferol (Ergocalciferol) 50,000 Unit Cap 39330 UNITS PO SUNDAY Nutritional Supplement #30 Ref 0 CAP Fluticasone 10.6 GM Inh (Flovent Hfa 10.6 GM Inh) 44 Mcg/Act Inh 2 PUFF INH BID Use daily at the same time. Asthma Management #1 Ref 0 INHALER Guaifenesin (Eq Mucus ER) 600 Mg Tab 600 MG PO BID PRN COUGH Prednisone (Prednisone) 10 Mg Tab 10 MG PO DAILY BRONCOSPASM Ref 0 TAB Additional Information Follow-up with her PCP in 1-2 weeks Follow-up with cardiology as needed Teri Mead Apr 05, 2017 18:19
== END 2017-04-04 18:52 | disposition home or self-care (01) ==
LOC: NEPC 10:55 → NEDA 14:48 → NEPHCDU 16:49
PROVIDERS: ADMIT Internal Medicine; ATTEND Internal Medicine
DX: R07.89 Other chest pain (principal); R10.13 Epigastric pain; J44.9 Chronic obstructive pulmonary disease, unspecified; K21.9 Gastro-esophageal reflux disease without esophagitis; I10 Essential (primary) hypertension; Z99.81 Dependence on supplemental oxygen; Z88.1 Allergy status to other antibiotic agents; Z88.5 Allergy status to narcotic agent; Z88.8 Allergy status to other drugs, medicaments and biological substances; Z79.82 Long term (current) use of aspirin; Z85.828 Personal history of other malignant neoplasm of skin; Z87.891 Personal history of nicotine dependence
CPT/HCPCS: 71010; 78452; 80048; 80061; 82550; 83735; 84484; 85025; 85610; 85730; 93005; 93017; 93306; 94640; 94664; 96372; 99285; A9502; G0378; J1644; J2785; J7512; J7613

== ENCOUNTER 2018-02-25 07:59 | Inpatient (IN) | payer MEDICARE ==
[2018-02-25] VITALS (19 sets, daily range): BP systolic 112–195; BP diastolic 66–111; PULSE 88–120; RESP 16–45; TEMP 98–99.2; O2SAT 2–99
[~2018-02-25] VITALS: Ht 149.9 cm; Wt 37.5 kg
[~2018-02-25 07:59] MED LIST changes: +ALBU0.08 NEB; -ALBU8I INH; +ASPI81TA23 PO; -AZIT250T74 PO; -ECOT81TA2 PO; -FLOV44AE INH; +FLUTI44I INH; +GUAI1TAB15 PO; -GUAI600 PO; -PRED10PA PO; +VENTAER INH; +VITA500012 PO; -Z.0.OXYGENDME NC
--- NOTE | 2018-02-25 08:26 | PD ---
HPI Chief Complaint: Respiratory Distress Time Seen by Provider: 08:11 Travel History International Travel<30 days: No Contact w/Intl Traveler<30days: No Traveled to known affect area: No History of Present Illness HPI 77-year-old female arrives with shortness of breath and wheezing. She also has been coughing up clear phlegm. She states it is like a drowning sensation. She uses 10 mg of prednisone daily and nebulizer treatments every hour at home. Associated symptoms today include nausea. She reports decreased appetite the past few days. She reports that she is currently on Levaquin for bronchitis. She denies fever. She reports chest pain generalized. Dyspnea on exertion is reported. Severity moderate to severe. 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) Cardiac Catheterization: Yes Cardiovascular Problems: Yes High Cholesterol: No Chemotherapy: No Chest Pain: No Congestive Heart Failure: No COPD: Yes (dx in 2011) Cerebrovascular Accident: No Coronary Artery Disease: No Diabetes: No Diminished Hearing: No Endocrine: No Gastrointestinal Disorders: No GERD: Yes Genitourinary: Yes (NOV 2010) Headaches: No Hepatitis: No Hiatal Hernia: No Heparin Induced Thrombocytopen: No Hypertension: No Immune Disorder: No Implanted Vascular Access Dvce: No Kidney Stones: Yes (STENT PLACED AND REMOVED X2) Musculoskeletal: Yes (arthritis) Neurologic: No Psychiatric: No Reproductive: No Respiratory: Yes Integumentary: No Migraines: No Radiation Therapy: No Renal Failure: No Seizures: No Sickle Cell Disease: No Sleep Apnea: No Thyroid Disease: No Ulcer: No Menopausal: Yes Past Surgical History Abdominal Surgery: No AICD: No Arteriovenous Shunt: No Coronary Stent: Yes Ear Surgery: No Endocrine Surgery: No Eye Surgery: No Genitourinary Surgery: Yes (URETHRAL STENT put in 5 years ago and now is not there) Gynecologic Surgery: No Insulin Pump: No Joint Replacement: No Neurologic Surgery: No Oral Surgery: No Pacemaker: No (hx. of cardiac catherazation) Thoracic Surgery: No Other Surgery: No (HAS CYSTITIS AND A CANCER REMOVED FROM HER FACE) Social History Alcohol Use: No Tobacco Use: No Substance Use: No Allergies-Medications (Allergen,Severity, Reaction): Coded Allergies: acetaminophen (Unverified Allergy, Severe, ITCHING, NAUSEA, 02/25/18) codeine (Unverified Allergy, Severe, N/V/PASSING OUT, 02/25/18) hydrocodone (Unverified Allergy, Severe, Tingling, 02/25/18) lansoprazole (Unverified Allergy, Severe, 02/25/18) unrecalled reaction levofloxacin (Unverified Allergy, Severe, 02/25/18) nitrofurantoin (Unverified Allergy, Severe, Tingling, 02/25/18) Reported Meds & Prescriptions Reported Meds & Active Scripts Active Reported Ergocalciferol 50,000 Unit Cap 50,000 Units PO SUNDAY Albuterol Neb (Albuterol Sulfate) 2.5 Mg/3 Ml Neb 2.5 Mg NEB Q6HR NEB PRN While awake Eq Mucus ER (Guaifenesin) 600 Mg Tab 600 Mg PO BID PRN Flovent Hfa 10.6 GM Inh (Fluticasone Propionate) 44 Mcg/Act Inh 2 Puff INH BID Use daily at the same time. Ventolin Hfa 18 GM Inh (Albuterol Sulfate) 90 Mcg/Act Aer 2 Puff INH Q6H PRN Aspirin EC (Aspirin) 81 Mg Tabdr 81 Mg PO DAILY Prednisone 10 Mg Tab 10 Mg PO DAILY Review of Systems Except as stated in HPI: all other systems reviewed are Neg General / Constitutional: No: Fever Physical Exam Narrative GENERAL:77-year-old female moderate distress emphysematous habitus Vital Signs Date Time Temp Pulse Resp B/P (MAP) Pulse Ox O2 Delivery O2 Flow Rate FiO2 02/25/18 08:15 96 Nasal Cannula 3.00 02/25/18 08:15 96 Nasal Cannula 3.00 02/25/18 08:14 116 35 143/95 (111) 96 Nasal Cannula 3.00 02/25/18 08:01 99.2 116 28 167/84 (111) 92 SKIN: Warm and dry. HEAD: Atraumatic. Normocephalic. EYES: Pupils equal and round. No scleral icterus. No injection or drainage. ENT: No nasal bleeding or discharge. Mucous membranes pink and moist. NECK: Trachea midline. No JVD. CARDIOVASCULAR: Tachycardia to about 110. RESPIRATORY: Wheezing present. Tachypnea present. GASTROINTESTINAL: Abdomen soft, non-tender, nondistended. Hepatic and splenic margins not palpable. MUSCULOSKELETAL: Extremities without clubbing, cyanosis, or edema. No obvious deformities. NEUROLOGICAL: Awake and alert. No obvious cranial nerve deficits. Motor grossly within normal limits. Five out of 5 muscle strength in the arms and legs. Normal speech. PSYCHIATRIC: Appropriate mood and affect; insight and judgment normal. Data Data Last Documented VS Vital Signs Date Time Temp Pulse Resp B/P (MAP) Pulse Ox O2 Delivery O2 Flow Rate FiO2 02/25/18 09:40 98 02/25/18 09:30 118 32 138/82 (100) BiPAP 45 02/25/18 09:00 4.00 02/25/18 08:01 99.2 Orders Orders Electrocardiogram (02/25/18 08:11) Complete Blood Count With Diff (02/25/18 08:11) Basic Metabolic Panel (Bmp) (02/25/18 08:11) Ckmb (Isoenzyme) Profile (02/25/18 08:11) Troponin I (02/25/18 08:11) Iv Access Insert/Monitor (02/25/18 08:11) Ecg Monitoring (02/25/18 08:11) Oxygen Administration (02/25/18 08:11) Oximetry (02/25/18 08:11) Chest, Single Ap (02/25/18 ) Resp Bipap / Cpap Non Invas Vt (02/25/18 ) Arterial Blood Gas (Abg) (02/25/18 08:19) Methylprednisolone So Succ Inj (Solumedr (02/25/18 08:30) Albuterol-Ipratropium Neb (Duoneb Neb) (02/25/18 08:30) Sodium Chlor 0.9% 1000 Ml Inj (Ns 1000 M (02/25/18 08:30) Tramadol (Ultram) (02/25/18 09:30) Cefepime Inj (Maxipime Inj) (02/25/18 09:45) Vancomycin Inj (Vancomycin Inj) (02/25/18 09:45) Blood Culture (02/25/18 09:42) Admit Order (Ed Use Only) (02/25/18 ) Diamond Picker / Telemetry ANTONELLA.Q8H (02/25/18 10:07) Vital Signs (Adult) Q4H (02/25/18 10:07) Activity Bed Rest (02/25/18 10:07) Inpatient Certification (02/25/18 ) Diet Regular Basic (02/25/18 Lunch) Activity Bed Rest With Brp (02/25/18 10:07) Vital Signs (Adult) ANTONELLA.Q4H (02/25/18 10:07) Consult Pulmonology (02/25/18 ) Admit To Inpatient (02/25/18 10:09) Labs Laboratory Tests Test 02/25/18 08:40 White Blood Count 8.4 TH/MM3 Red Blood Count 4.78 MIL/MM3 Hemoglobin 14.2 GM/DL Hematocrit 42.9 % Mean Corpuscular Volume 89.8 FL Mean Corpuscular Hemoglobin 29.7 PG Mean Corpuscular Hemoglobin Concent 33.1 % Red Cell Distribution Width 14.8 % Platelet Count 185 TH/MM3 Mean Platelet Volume 9.3 FL Neutrophils (%) (Auto) 73.1 % Lymphocytes (%) (Auto) 8.6 % Monocytes (%) (Auto) 14.7 % Eosinophils (%) (Auto) 3.3 % Basophils (%) (Auto) 0.3 % Neutrophils # (Auto) 6.1 TH/MM3 Lymphocytes # (Auto) 0.7 TH/MM3 Monocytes # (Auto) 1.2 TH/MM3 Eosinophils # (Auto) 0.3 TH/MM3 Basophils # (Auto) 0.0 TH/MM3 CBC Comment DIFF FINAL Differential Comment Blood Urea Nitrogen 10 MG/DL Creatinine 0.55 MG/DL Random Glucose 91 MG/DL Calcium Level 8.2 MG/DL Sodium Level 139 MEQ/L Potassium Level 4.1 MEQ/L Chloride Level 100 MEQ/L Carbon Dioxide Level 34.5 MEQ/L Anion Gap 5 MEQ/L Estimat Glomerular Filtration Rate 107 ML/MIN Total Creatine Kinase 64 U/L Troponin I 0.03 NG/ML MDM Medical Decision Making Medical Screen Exam Complete: Yes Emergency Medical Condition: Yes Medical Record Reviewed: Yes Differential Diagnosis COPD, pneumothorax, pneumonia Narrative Course BiPAP started along with nebulizers IV Solu-Medrol. Patient is quite dyspneic here and tachycardic. The O2 sats 97% on 4 L. Anticipate admission. CBC & BMP Diagram 02/25/18 08:40 Calcium Level 8.2 L Last Impressions Chest X-Ray 02/25/18 0000 Signed Impressions: Service Date/Time: Sunday, February 25, 2018 08:24 - CONCLUSION: Increased airspace opacity, likely consolidation, in the medial aspect of the right upper lobe. There is also likely some degree of volume loss in this area given the superior traction of the right hilum. Although nonspecific this could represent an infectious process in the appropriate clinical setting. Micheal Geiger MD Patient has a right lung consolidation. Cefepime and vancomycin, weight-based, started. Blood cultures drawn. Admission for respiratory distress with pneumonia. Patient is on BiPAP in the ED at the time of admission order. Her hospital course is unpredictable however could deteriorate and for this reason ICU management is felt to be appropriate. Because patient is hemodynamically stable and has a a PO2 of 117 on 21% is considered to be within the scope of hospitalist management. pt's sas analyst is Dr Gil d/w Dr Dixon Critical Care Narrative Aggregate critical care time was 35 minutes. Time to perform other separately billable procedures was not included in the critical care time. My time did not include minutes spent treating any other patients simultaneously or on activities that did not directly contribute to the patient's treatment. The services I provided to this patient were to treat and/or prevent clinically significant deterioration that could result in: Cardiopulmonary arrest, hypoxia I provided critical care services requiring my management, as noted below: Chart data review, documentation time, medication orders and management, vital sign assessments/reviewing monitor data, ordering and reviewing lab tests, ordering and interpreting/reviewing x-rays and diagnostic studies, care of the patient and discussion of the patient with the admitting physicians. Diagnosis Primary Impression: COPD (chronic obstructive pulmonary disease) Qualified Codes: J44.9 - Chronic obstructive pulmonary disease, unspecified Additional Impressions: Pneumonia Qualified Codes: J18.1 - Lobar pneumonia, unspecified organism COPD exacerbation Admitting Information Admitting Physician Requests: Admit Serafin Adame MD Feb 25, 2018 08:26
[2018-02-25] MEDS ORDERED: methylPREDNISolone SOD SUCC 125 MG/2 ML VIAL IV PUSH ONE (08:30)
[2018-02-25] MEDS ORDERED: SODIUM CHLOR 0.9% 1000 ML INJ 1,000 ML IV ONE (08:30)
[2018-02-25] MEDS: RESP: ALBUTEROL 2.5 MG/IPRATROPIUM 0.5 MG NEB (SCH) INH ×2 (08:50→19:22)
--- NOTE | 2018-02-25 09:00 | RADRPT ---
EXAM DATE/TIME: 02/25/2018 08:24 [facility] COMPARISON: CT PULMONARY ANGIOGRAM, May 28, 2016, 13:27. CHEST SINGLE AP, May 28, 2016, 10:58. CHEST SINGLE A P, April 02, 2017, 12:16. INDICATIONS : Shortness of breath. MEDICAL HISTORY : Chronic obstructive pulmonary disease. Cardiovascular disease. SURGICAL HISTORY : Cardiac cath. Coronary stent ENCOUNTER: Initial ACUITY: 1 day PAIN SCORE: 0/10 LOCATION: Bilateral chest FINDINGS: Portable upright AP view of the chest demonstrates a normal-sized cardiac silhouette. Hilar regions a re stable with possible mild superior traction of the right hilum. There is opacity in the medial rig ht upper lung zone, slightly increased from the prior studies. No pleural effusion or pneumothorax is identified. The bones and soft tissues demonstrate no acute abnormality. CONCLUSION: Increased airspace opacity, likely consolidation, in the medial aspect of the right upper lobe. There is also likely some degree of volume loss in this area given the superior traction of the right hilu m. Although nonspecific this could represent an infectious process in the appropriate clinical settin gMarcos Geiger MD on February 25, 2018 at 8:55 Board Certified Radiologist. This report was verified electronically.
[2018-02-25 09:01] LABS: AUTOMATED NEUTROPHIL # 6.1 TH/MM3 (1.8-7.7); BASOPHIL % 0.3 % (0.0-2.0); EOSINOPHIL # 0.3 TH/MM3 (0-0.4); EOSINOPHIL % 3.3 % (0.0-4.0); HEMATOCRIT 42.9 % (35.0-46.0); HEMOGLOBIN 14.2 GM/DL (11.6-15.3); LYMPH % 8.6 % (9.0-44.0); LYMPHOCYTE # 0.7 TH/MM3 (1.0-4.8); MEAN CELL VOLUME 89.8 FL (80.0-100.0); MEAN CORPUSCULAR HEMOGLOBIN 29.7 PG (27.0-34.0); MEAN CORPUSCULAR HGB CONC 33.1 % (32.0-36.0); MEAN PLATELET VOLUME 9.3 FL (7.0-11.0); MONO % 14.7 % (0.0-8.0); MONOCYTE # 1.2 TH/MM3 (0-0.9); NEUT % 73.1 % (16.0-70.0); PLATELET COUNT 185 TH/MM3 (150-450); RED BLOOD COUNT 4.78 MIL/MM3 (4.00-5.30); RED CELL DISTRIBUTION WIDTH 14.8 % (11.6-17.2); WHITE BLOOD COUNT 8.4 TH/MM3 (4.0-11.0)
[2018-02-25 09:23] LABS: BICARBONATE 34.5 MEQ/L (21.0-32.0); CALCIUM 8.2 MG/DL (8.5-10.1); CREATININE 0.55 MG/DL (0.50-1.00)
[2018-02-25 09:28] LABS: TROPONIN I 0.03 NG/ML (0.02-0.05)
[2018-02-25] MEDS ORDERED: traMADol HCL 50 MG TAB PO ONE (09:30)
[2018-02-25] MEDS ORDERED: VANCOMYCIN INJ 750 MG in SODIUM CHLOR 0.9% 250 ML INJ 250 ML IV ONE (09:45)
[2018-02-25] MEDS ORDERED: CEFEPIME INJ 1,000 MG in SODIUM CHLORIDE 0.9% INJ 100 ML IV ONE (09:45)
[2018-02-25] MEDS ORDERED: MAGNESIUM HYDROXIDE SUSP 30 ML CUP PO PRN (16:30)
[2018-02-25] MEDS ORDERED: ONDANSETRON HCL 4 MG/2 ML VIAL IVP PRN (16:30)
[2018-02-25] MEDS ORDERED: NALOXONE HCL 0.4 MG/ML AMP IV PUSH PRN (16:30)
[2018-02-25] MEDS ORDERED: SENNOSIDES 8.6 MG TAB PO PRN (16:30)
[2018-02-25] MEDS ORDERED: BISACODYL 10 MG SUPP RECTAL PRN (16:30)
[2018-02-25] MEDS ORDERED: LACTULOSE SYRUP 20 GM/30 ML CUP PO PRN (16:30)
[2018-02-25] MEDS ORDERED: Vancomycin Consult Pharmacy 1 EA OTHER SCH (16:30)
[2018-02-25] MEDS ORDERED: IBUPROFEN 400 MG TAB PO PRN (16:30)
--- NOTE | 2018-02-25 16:41 | HHI.HP ---
[facility] Matias Gil MD Admission Diagnosis COPD Exacerbation; RUL PNA Diagnoses: Chief Complaint: Shortness of breath Travel History International Travel<30 Days: No Contact w/Intl Traveler <30 Da: No Traveled to Known Affected Are: No Sepsis Criteria SIRS Criteria (2 or more): Heart rate over 90, RR > 20 or PaCO2 < 32 Sepsis Criteria (SIRS+source): Infect source susp/known Criteria Outcome: Meets sepsis criteria History of Present Illness 77-year-old female who presented to the emergency department because of shortness of breath. States she has been having difficulty breathing with wheezing associated with productive cough of whitish phlegm. She has history of COPD and uses scheduled nebulization every 4 hours. She is also on chronic prednisone. 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 She also has been started on Levaquin. In the emergency department she was in respiratory distress and was started on a BiPAP. She was also started on IV cefepime and vancomycin because of pneumonia seen on x-ray. Is she is seen in the ICU. States she is feeling slightly better. Denies fever, chills, chest pain, nausea and vomiting. all other systems reviewed negative Review of Systems Except as stated in HPI: all other systems reviewed are Neg Past Family Social History Past Medical History Arthritis, Skin ca, GERD and kidney stones Past Surgical History as above Reported Medications Ergocalciferol 50,000 Unit Cap 50,000 Units PO SUNDAY Albuterol Neb (Albuterol Sulfate) 2.5 Mg/3 Ml Neb 2.5 Mg NEB Q6HR NEB PRN While awake Eq Mucus ER (Guaifenesin) 600 Mg Tab 600 Mg PO BID PRN Flovent Hfa 10.6 GM Inh (Fluticasone Propionate) 44 Mcg/Act Inh 2 Puff INH BID Use daily at the same time. Ventolin Hfa 18 GM Inh (Albuterol Sulfate) 90 Mcg/Act Aer 2 Puff INH Q6H PRN Aspirin EC (Aspirin) 81 Mg Tabdr 81 Mg PO DAILY Prednisone 10 Mg Tab 10 Mg PO DAILY Allergies: Coded Allergies: acetaminophen (Unverified Allergy, Severe, ITCHING, NAUSEA, 02/25/18) codeine (Unverified Allergy, Severe, N/V/PASSING OUT, 02/25/18) hydrocodone (Unverified Allergy, Severe, Tingling, 02/25/18) lansoprazole (Unverified Allergy, Severe, 02/25/18) unrecalled reaction levofloxacin (Unverified Allergy, Severe, 02/25/18) nitrofurantoin (Unverified Allergy, Severe, Tingling, 02/25/18) Family History no CVA and CAd Social History ex smoker does not drink Physical Exam Vital Signs Vital Signs Date Time Temp Pulse Resp B/P (MAP) Pulse Ox O2 Delivery O2 Flow Rate FiO2 02/25/18 14:46 02/25/18 13:56 100 21 116/71 (86) 93 BiPAP 45 02/25/18 12:30 110 31 145/79 (101) 92 BiPAP 45 02/25/18 12:00 104 28 122/72 (89) 93 BiPAP 45 02/25/18 11:00 110 32 118/79 (92) 94 BiPAP 45 02/25/18 10:00 110 25 125/73 (90) 94 BiPAP 45 02/25/18 09:40 98 02/25/18 09:30 118 32 138/82 (100) 99 BiPAP 45 02/25/18 09:25 BiPAP 45 02/25/18 09:00 120 45 195/111 (139) 99 Nasal Cannula 4.00 02/25/18 08:52 97 Nasal Cannula 4.00 02/25/18 08:15 96 Nasal Cannula 3.00 02/25/18 08:15 96 Nasal Cannula 3.00 02/25/18 08:14 116 35 143/95 (111) 96 Nasal Cannula 3.00 02/25/18 08:01 99.2 116 28 167/84 (111) 92 Physical Exam GENERAL: This is an asthenic, well-developed patient who is critically ill on BIPAP SKIN: No rashes, ecchymoses or lesions. Cool and dry. HEAD: Atraumatic. Normocephalic. No temporal or scalp tenderness. EYES: Pupils equal round and reactive. Extraocular motions intact. No scleral icterus. No injection or drainage. ENT: Nose without bleeding, purulent drainage or septal hematoma. Throat without erythema, tonsillar hypertrophy or exudate. Uvula midline. Airway patent. NECK: Trachea midline. No JVD or lymphadenopathy. Supple, nontender, no meningeal signs. CARDIOVASCULAR: Regular rate and rhythm without murmurs, gallops, or rubs. RESPIRATORY: Decreased Breath sounds equal bilaterally. No wheezes, rales, or rhonchi. GASTROINTESTINAL: Abdomen soft, non-tender, nondistended. No guarding. MUSCULOSKELETAL: Extremities without clubbing, cyanosis, or edema. No joint tenderness, effusion, or edema noted. No calf tenderness. Negative Homans sign bilaterally. NEUROLOGICAL: Awake and alert. Cranial nerves II through XII intact. Motor and sensory grossly within normal limits. Five out of 5 muscle strength in all muscle groups. Normal speech. Laboratory Laboratory Tests Test 02/25/18 08:40 02/25/18 08:55 White Blood Count 8.4 Red Blood Count 4.78 Hemoglobin 14.2 Hematocrit 42.9 Mean Corpuscular Volume 89.8 Mean Corpuscular Hemoglobin 29.7 Mean Corpuscular Hemoglobin Concent 33.1 Red Cell Distribution Width 14.8 Platelet Count 185 Mean Platelet Volume 9.3 Neutrophils (%) (Auto) 73.1 Lymphocytes (%) (Auto) 8.6 Monocytes (%) (Auto) 14.7 Eosinophils (%) (Auto) 3.3 Basophils (%) (Auto) 0.3 Neutrophils # (Auto) 6.1 Lymphocytes # (Auto) 0.7 Monocytes # (Auto) 1.2 Eosinophils # (Auto) 0.3 Basophils # (Auto) 0.0 CBC Comment DIFF FINAL Differential Comment Blood Urea Nitrogen 10 Creatinine 0.55 Random Glucose 91 Calcium Level 8.2 Sodium Level 139 Potassium Level 4.1 Chloride Level 100 Carbon Dioxide Level 34.5 Anion Gap 5 Estimat Glomerular Filtration Rate 107 Total Creatine Kinase 64 Troponin I 0.03 Blood Gas Puncture Site RT RADIAL Blood Gas Patient Temperature 98.6 Blood Gas HCO3 33 Blood Gas Base Excess 7.3 Blood Gas Oxygen Saturation 96 Arterial Blood pH 7.34 Arterial Blood Partial Pressure CO2 63 Arterial Blood Partial Pressure O2 117 Arterial Blood Oxygen Content 18.1 Arterial Blood Carboxyhemoglobin 1.2 Arterial Blood Methemoglobin 0.6 Blood Gas Hemoglobin 13.3 Oxygen Delivery Device NASAL CANNULA Blood Gas Liter Flow 2 Date/Time Source Procedure Growth Status 02/25/18 10:00 Blood Peripheral Aerobic Blood Culture Pending Received 02/25/18 10:00 Blood Peripheral Anaerobic Blood Culture Pending Received Result Diagram: 02/25/18 0840 02/25/18 0840 Imaging Last Impressions Chest X-Ray 02/25/18 0000 Signed Impressions: Service Date/Time: Sunday, February 25, 2018 08:24 - CONCLUSION: Increased airspace opacity, likely consolidation, in the medial aspect of the right upper lobe. There is also likely some degree of volume loss in this area given the superior traction of the right hilum. Although nonspecific this could represent an infectious process in the appropriate clinical setting. MD Ambrose Castillo VTE Risk Assessment Caprini VTE Risk Assessment: Mod/High Risk (score >= 2) Caprini Risk Assessment Model Point Value = 1 Point Value = 2 Point Value = 3 Point Value = 5 Age 41-60 Minor surgery BMI > 25 kg/m2 Swollen legs Varicose veins or History of unexplained or recurrent spontaneous Oral contraceptives or hormone replacement Sepsis (< 1 month) Serious lung disease, including pneumonia (< 1 month) Abnormal pulmonary function Acute myocardial infarction Congestive heart failure (< 1 month) History of inflammatory bowel disease Medical patient at bed rest Age 61-74 Arthroscopic surgery Major open surgery (> 45 min) Laparoscopic surgery (> 45 min) Malignancy Confined to bed (> 72 hours) Immobilizing plaster cast Central venous access Age >= 75 History of VTE Family history of VTE Factor V Leiden Prothrombin [id number] Lupus anticoagulant Anticardiolipin antibodies Elevated serum homocysteine Heparin-induced thrombocytopenia Other congenital or acquired thrombophilia Stroke (< 1 month) Elective arthroplasty Hip, pelvis, or leg fracture Acute spinal cord injury (< 1 month) Prophylaxis Regimen Total Risk Factor Score Risk Level Prophylaxis Regimen 0-1 Low Early ambulation 2 Moderate Order ONE of the following: *Sequential Compression Device (SCD) *Heparin 5000 units SQ BID 3-4 Higher Order ONE of the following medications: *Heparin 5000 units SQ TID *Enoxaparin/Lovenox 40 mg SQ daily (WT < 150 kg, CrCl > 30 mL/min) *Enoxaparin/Lovenox 30 mg SQ daily (WT < 150 kg, CrCl > 10-29 mL/min) *Enoxaparin/Lovenox 30 mg SQ BID (WT < 150 kg, CrCl > 30 mL/min) AND/OR *Sequential Compression Device (SCD) 5 or more Highest Order ONE of the following medications: *Heparin 5000 units SQ TID (Preferred with Epidurals) *Enoxaparin/Lovenox 40 mg SQ daily (WT < 150 kg, CrCl > 30 mL/min) *Enoxaparin/Lovenox 30 mg SQ daily (WT < 150 kg, CrCl > 10-29 mL/min) *Enoxaparin/Lovenox 30 mg SQ BID (WT < 150 kg, CrCl > 30 mL/min) AND *Sequential Compression Device (SCD) Assessment and Plan Problem List: (1) COPD exacerbation ICD Code: J44.1 - Chronic obstructive pulmonary disease with (acute) exacerbation Status: Acute (2) Pneumonia ICD Code: J18.9 - Pneumonia Status: Acute Assessment and Plan This is a 77-year-old female with hx COPD who presented to the emergency department because of shortness of breath, wheezing and productive cough of whitish phlegm. Chest x-ray shows consolidation in the right lung. In the ER she was in resp distress and started on BIPAP. Acute resp hypercarbic RF 2/2 COPD exacerbation. Wean BIPAP, O2 keep sat > 92%, IV steroids and consult Pulmo. She is a full code CAP with failed OP tx . She has sepsis. F/u bllod cx, check sputum cx, urinary legionella and pneumococcal antigen. Stat Zosyn and ct Vanco. Check Lactic acid Multiple med conditions of Arthritis, Skin ca, GERD and kidney stones. DVT proph with SCD and SQ heparin Discussed Condition With pt and daughter Problem Qualifiers (1) Pneumonia: Qualified Codes: J18.1 - Lobar pneumonia, unspecified organism Vaibhav Roman MD Feb 25, 2018 16:41
[2018-02-25] MEDS: SODIUM CHLOR 0.9% 1000 ML INJ 1,000 ML IV SCH (17:00)
[2018-02-25] MEDS: PIPERACIL-TAZO 4.5 GM PREMIX 100 ML IV SCH ×2 (17:57→21:14)
[2018-02-25] MEDS: HEPARIN SODIUM - SQ 10,000 UNITS/ML VIAL SQ SCH (17:58)
[2018-02-25] MEDS: methylPREDNISolone SOD SUCC 125 MG/2 ML VIAL IV PUSH SCH ×2 (17:58→21:15)
--- NOTE | 2018-02-25 19:03 | MB ---
cc: Garrick Stuart MD DATE: 02/25/2018 DATE OF CONSULTATION: 02/25/2018 REQUESTING PHYSICIAN: Dr. Roman. REASON FOR CONSULTATION: Evaluate for COPD exacerbation. HISTORY OF PRESENT ILLNESS: Mr. Coombs is a 77-year-old female with a history of severe COPD. She is oxygen dependent, has multiple admissions in the hospital. The patient was not feeling well for the last 1 week or so. She saw Dr. Yun and was given 5 days of IV infusion treatment with Levaquin and steroids. She did not get better. Because of the worsening of symptoms, she came to the hospital. She has cough and congestion, shortness of breath. No fever or chills. No night sweats. She had a workup done in the hospital. Her chest x-ray shows she has increased airspace opacity, likely consolidation in the medial aspect of the right upper lobe and some degree of volume loss. CBC shows WBC count 8.4, hemoglobin 14.2, hematocrit 42.9, MCV 89, platelet count 185. Sodium 139, potassium 4.1, chloride 100, CO2 of 34, BUN 10, creatinine 0.55. Blood gas : PH 7.34, pCO2 of 63, pO2 117, bicarbonate 33. PAST MEDICAL HISTORY: Significant for history of COPD with multiple exacerbations, history of hypertension. MEDICATIONS: She is currently takin. Vancomycin. 2. IV Zosyn. 3. Aspirin 81 mg a day. 4. Flovent 2 puffs twice a day. 5. Solu-Medrol 60 mg q.6 hours. 6. Heparin 5000 q.6 hours. 7. Ibuprofen 400 mg p.o. 8. Mucinex 600 mg twice a day. ALLERGIES: ALLERGIC TO CODEINE, HYDROCODONE, PREVACID, LEVAQUIN, NITROFURANTOIN, ACETAMINOPHEN. SOCIAL HISTORY: She is , lives with her 2 sons who are deaf and she basically takes care of them. Has no history of smoking. 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 FAMILY HISTORY: She has 6 children. REVIEW OF SYSTEMS: She feels weak, frail. No loss of weight, no malignancy. No DVT, pulmonary embolism, no seizures, stroke or epilepsy. PHYSICAL EXAMINATION: GENERAL: Frail, elderly female. Mild short of breath. VITAL SIGNS: Blood pressure 116/71, heart rate 100, respirations 21, temperature 98. HEENT: Right pupil is oblong and abnormal. She has decreased vision on the right side. She has had bilateral cataract surgery done. Oral mucosa and nasal mucosa normal. NECK: Supple. JVD not raised. CHEST: She has expiratory rhonchi. CARDIOVASCULAR: S1, S2 normal. ABDOMEN: Benign. EXTREMITIES: No edema. IMPRESSION: 1. Chronic obstructive pulmonary disease with exacerbation. 2. Hypercapnic respiratory failure. 3. Bronchitis. 4. Pneumonia. 5. Weight loss. PLAN: Discussed with the patient and her son at the bedside, we will keep her on BiPAP at nighttime and daytime as needed, supplement her oxygen, continue Zosyn and vancomycin, IV Solu-Medrol, Heparin for DVT prophylaxis. I discussed with the patient and her son, if she gets worse, she is agreeable to go on ventilator. Further treatment plan will depend on her course in the hospital. Thank you Dr. Roman for this consult. MD FRANCES Franklin/SB , 06:35 PM , 07:01 PM
--- NOTE | 2018-02-25 20:45 | EKG ---
Date Performed: 02/25/2018 Time Performed: 08:17:36 PTAGE: 77 years EKG: SINUS TACHYCARDIA WITH OCCASIONAL SUPRAVENTRICULAR PREMATURE COMPLEXES ABNORMAL RHYTHM ECG PREVIOUS TRACING : 04/02/2017 11.12 Since the previous tracing, no significant change noted DOCTOR: Jakub Vega Interpretating Date/Time 02/25/2018 20:44:18
[2018-02-25] MEDS: DOCUSATE SODIUM 50 MG/SENNA 8.6 MG TAB PO SCH (21:00)
[2018-02-26] VITALS (23 sets, daily range): BP systolic 73–140; BP diastolic 50–88; PULSE 91–115; RESP 24–45; TEMP 98.1–98.9; O2SAT 93–97
[2018-02-26] MEDS: FLUTICASONE PROPIONATE 44 MCG/ACT 10.6 GM INHALER INH SCH ×3 (01:35→20:02)
[2018-02-26] MEDS: PIPERACIL-TAZO 4.5 GM PREMIX 100 ML IV SCH ×4 (05:14→22:45)
[2018-02-26] MEDS: methylPREDNISolone SOD SUCC 125 MG/2 ML VIAL IV PUSH SCH ×4 (05:14→22:46)
[2018-02-26] MEDS: HEPARIN SODIUM - SQ 10,000 UNITS/ML VIAL SQ SCH ×2 (05:15→16:35)
[2018-02-26] MEDS: RESP: ALBUTEROL 2.5 MG/3 ML NEB (PRN) INH (06:24)
[2018-02-26 06:38] LABS: CREATININE 0.56 MG/DL (0.50-1.00)
[2018-02-26] MEDS: RESP: ALBUTEROL 2.5 MG/IPRATROPIUM 0.5 MG NEB (SCH) INH ×4 (08:23→20:41)
[2018-02-26] MEDS: ASPIRIN EC 81 MG TABEC PO SCH (08:45)
[2018-02-26] MEDS: DOCUSATE SODIUM 50 MG/SENNA 8.6 MG TAB PO SCH ×2 (08:45→20:02)
[2018-02-26] MEDS: VANCOMYCIN INJ 500 MG in SODIUM CHLORIDE 0.9% INJ 100 ML IV SCH (13:28)
--- NOTE | 2018-02-26 14:44 | HHI.PR ---
Subjective Remarks 77-year-old female who presented to the emergency department because of shortness of breath. States she has been having difficulty breathing with wheezing associated with productive cough of whitish phlegm. She has history of COPD and uses scheduled nebulization every 4 hours. She is also on chronic prednisone. Over the weekend she received IV steroids and her [facility]. She also has been started on Levaquin. In the emergency department she was in respiratory distress and was started on a BiPAP. She was also started on IV cefepime and vancomycin because of pneumonia seen on x-ray. Is she is seen in the ICU. States she is feeling slightly better. Denies fever, chills, chest pain, nausea and vomiting. all other systems reviewed negative 5-1 PATIENT STATES SHE FEELS BETTER THAN YESTERDAY HAS CHRONIC BRONCHIECTASIS DX WITH PNEUMONIA WAS HYPOTENSIVE - HAS BEEN STARTED ON FLUIDS CONSULT PULMONARY PT AND OT MUCINEX INCENTIVE SPIROMETRY Objective Vitals Vital Signs Date Time Temp Pulse Resp B/P (MAP) Pulse Ox O2 Delivery O2 Flow Rate FiO2 02/26/18 14:00 107 45 95/56 (69) 97 02/26/18 13:00 110 38 93/57 (69) 95 02/26/18 12:36 102 30 73/57 (62) 97 02/26/18 12:00 104 28 83/53 (63) 97 02/26/18 11:08 97 Nasal Cannula 4.00 02/26/18 11:00 91 28 81/51 (61) 97 02/26/18 10:00 100 30 83/50 (61) 96 02/26/18 09:00 115 34 100/62 (75) 96 02/26/18 08:23 96 35 02/26/18 08:00 98.1 97 24 100/63 (75) 94 02/26/18 06:24 93 35 02/26/18 06:00 106 02/26/18 04:00 114 02/26/18 04:00 98.5 108 28 140/88 (105) 94 02/26/18 02:00 99 02/26/18 01:50 94 35 02/26/18 00:00 98.7 100 25 126/81 (96) 94 02/26/18 00:00 100 02/25/18 22:00 88 02/25/18 20:00 98.2 100 33 112/70 (84) 95 02/25/18 20:00 100 02/25/18 19:22 97 BiPAP 35 02/25/18 19:20 97 35 02/25/18 18:00 107 02/25/18 16:26 97 35 02/25/18 16:00 98.0 103 16 133/66 (88) 99 02/25/18 16:00 107 02/25/18 14:46 I/O 02/25/18 02/25/18 02/25/18 02/26/18 02/26/18 02/26/18 07:00 15:00 23:00 07:00 15:00 23:00 Intake Total 1615.0 ml 200 ml 552 ml Output Total 450 ml Balance 1615.0 ml 200 ml 102 ml Intake Oral 0 ml IV Total 1615.0 ml 200 ml 552 ml Output Urine Total 450 ml # Bowel Movements 0 Result Diagram: 02/25/18 0840 02/26/18 0558 Other Results Laboratory Tests Test 02/25/18 08:40 02/25/18 08:55 02/25/18 16:00 02/25/18 20:21 White Blood Count 8.4 TH/MM3 Red Blood Count 4.78 MIL/MM3 Hemoglobin 14.2 GM/DL Hematocrit 42.9 % Mean Corpuscular Volume 89.8 FL Mean Corpuscular Hemoglobin 29.7 PG Mean Corpuscular Hemoglobin Concent 33.1 % Red Cell Distribution Width 14.8 % Platelet Count 185 TH/MM3 Mean Platelet Volume 9.3 FL Neutrophils (%) (Auto) 73.1 % Lymphocytes (%) (Auto) 8.6 % Monocytes (%) (Auto) 14.7 % Eosinophils (%) (Auto) 3.3 % Basophils (%) (Auto) 0.3 % Neutrophils # (Auto) 6.1 TH/MM3 Lymphocytes # (Auto) 0.7 TH/MM3 Monocytes # (Auto) 1.2 TH/MM3 Eosinophils # (Auto) 0.3 TH/MM3 Basophils # (Auto) 0.0 TH/MM3 CBC Comment DIFF FINAL Differential Comment Blood Urea Nitrogen 10 MG/DL Creatinine 0.55 MG/DL Random Glucose 91 MG/DL Calcium Level 8.2 MG/DL Sodium Level 139 MEQ/L Potassium Level 4.1 MEQ/L Chloride Level 100 MEQ/L Carbon Dioxide Level 34.5 MEQ/L Anion Gap 5 MEQ/L Estimat Glomerular Filtration Rate 107 ML/MIN Total Creatine Kinase 64 U/L Troponin I 0.03 NG/ML Blood Gas Puncture Site RT RADIAL Blood Gas Patient Temperature 98.6 Blood Gas HCO3 33 mmol/L Blood Gas Base Excess 7.3 mmol/L Blood Gas Oxygen Saturation 96 % Arterial Blood pH 7.34 Arterial Blood Partial Pressure CO2 63 mmHg Arterial Blood Partial Pressure O2 117 mmHG Arterial Blood Oxygen Content 18.1 Vol % Arterial Blood Carboxyhemoglobin 1.2 % Arterial Blood Methemoglobin 0.6 % Blood Gas Hemoglobin 13.3 G/DL Oxygen Delivery Device NASAL CANNULA Blood Gas Liter Flow 2 L/M Nasal Screen MRSA (PCR) MRSA DETECTED Lactic Acid Level 1.2 mmol/L Test 02/26/18 05:58 Creatinine 0.56 MG/DL Estimat Glomerular Filtration Rate 104 ML/MIN Imaging Last Impressions Chest X-Ray 02/25/18 0000 Signed Impressions: Service Date/Time: Sunday, February 25, 2018 08:24 - CONCLUSION: Increased airspace opacity, likely consolidation, in the medial aspect of the right upper lobe. There is also likely some degree of volume loss in this area given the superior traction of the right hilum. Although nonspecific this could represent an infectious process in the appropriate clinical setting. Micheal Geiger MD Objective Remarks GENERAL: He can alert and oriented 3 and talkative and cooperative SKIN: Warm and dry. HEAD: Atraumatic. Normocephalic. EYES: Pupils equal and round. No scleral icterus. No injection or drainage. extraocular muscles intact ENT: No nasal bleeding or discharge. Mucous membranes pink and moist. Tongue is midline NECK: Trachea midline. No JVD. Supple CARDIOVASCULAR: Regular rate and rhythm. S1-S2 no S3 or S4 RESPIRATORY: No accessory muscle use. Coarse breath sounds bilaterally throughout all lung gutiérrez breath sounds equal bilaterally. GASTROINTESTINAL: Abdomen soft, non-tender, nondistended. Hepatic and splenic margins not palpable. MUSCULOSKELETAL: Extremities without clubbing, cyanosis, or edema. No obvious deformities. NEUROLOGICAL: Awake and alert. No obvious cranial nerve deficits. Motor grossly within normal limits. 4 out of 5 muscle strength in the arms and legs. Normal speech. PSYCHIATRIC: Appropriate mood and affect; insight and judgment normal. Procedures NONE Medications and IVs Current Medications Methylprednisolone Sodium Succinate (SoluMEDROL INJ) 125 mg ONCE ONCE IV PUSH Last administered on 02/25/18at 08:44; Start 02/25/18 at 08:30; Stop 02/25/18 at 08:31; Status DC Albuterol/ Ipratropium (Duoneb Neb) 1 ampule Q15M INH Last administered on 02/25at 08:50; Start 02/25/18 at 08:30; Stop 02/25/18 at 08:46; Status DC Sodium Chloride 1,000 ml @ 999 mls/hr BOLUS ONCE IV Last administered on 02/25at 08:44; Start 02/25/18 at 08:30; Stop 02/25/18 at 09:30; Status DC Tramadol HCl (Ultram) 50 mg ONCE ONCE PO ; Start 02/25/18 at 09:30; Stop at 09:31; Status DC Cefepime HCl 1000 mg/Sodium Chloride 100 ml @ 200 mls/hr ONCE ONCE IV Last administered on 02/25/18at 10:06; Start 02/25/18 at 09:45; Stop 02/25/18 at 10:14 ; Status DC Vancomycin HCl 750 mg/Sodium Chloride 257.5 ml @ 250 mls/hr ONCE ONCE IV Last administered on 02/25/18at 11:18; Start 02/25/18 at 09:45; Stop 02/25/18 at 10:46; Status DC Sodium Chloride 1,000 ml @ 42 mls/hr [id number] IV Last administered on at 17:00; Start 02/25/18 at 17:00 Piperacillin Sod/ Tazobactam Sod 100 ml @ 200 mls/hr Q6H IV Last administered on 02/26/18at 12:36; Start 02/25/18 at 17:00 Pharmacy Profile Note 0 ml @ 0 mls/hr UNSCH OTHER ; Start 02/25/18 at 16:30 Albuterol/ Ipratropium (Duoneb Neb) 1 ampule QID NEB INH Last administered on 02/26/18at 11:08; Start 02/25/18 at 20:00 Albuterol Sulfate (Albuterol Neb) 2.5 mg Q2HR NEB PRN INH SHORTNESS OF BREATH Last administered on 02/26/18at 06:24; Start 02/25/18 at 16:30 Methylprednisolone Sodium Succinate (SoluMEDROL INJ) 60 mg Q6H IV PUSH Last administered on 02/26/18at 12:36; Start 02/25/18 at 17:00 Heparin Sodium (Porcine) (Heparin Inj) 5,000 units Q12H SQ Last administered on 02/26/18at 05:15; Start 02/25/18 at 17:00 Ondansetron HCl (Zofran Inj) 4 mg Q6H PRN IVP NAUSEA OR VOMITING; Start at 16:30 Ibuprofen (Motrin) 400 mg Q6H PRN PO PAIN SCALE 1 TO 2; Start 02/25/18 at 16:30 Naloxone HCl (Narcan Inj) 0.4 mg UNSCH PRN IV PUSH SEE LABEL COMMENTS; Start at 16:30 Senna/Docusate Sodium (Aurea-Colace) 1 tab BID PO Last administered on 02/26/18at 08:45; Start 02/25/18 at 21:00 Magnesium Hydroxide (Milk Of Magnesia Liq) 30 ml Q12H PRN PO Mild constipation ; Start 02/25/18 at 16:30 Sennosides (Senokot) 17.2 mg Q12H PRN PO Moderate constipation; Start 02/25/18 at 16:30 Bisacodyl (Dulcolax Supp) 10 mg DAILY PRN RECTAL SEVERE CONSITIPATION; Start at 16:30 Lactulose (Lactulose Liq) 30 ml DAILY PRN PO SEVERE CONSITIPATION; Start at 16:30 Aspirin (Ecotrin Ec) 81 mg DAILY PO Last administered on 02/26/18at 08:45; Start 02/26/18 at 09:00 Fluticasone Propionate (Flovent Hfa 44 Mcg Inh) 2 puff BID INH Last administered on 02/26/18at 08:46; Start 02/25/18 at 21:00 Guaifenesin (Mucinex Er) 600 mg BID PRN PO COUGH; Start 02/25/18 at 16:30 Vancomycin HCl 500 mg/Sodium Chloride 100 ml @ 100 mls/hr Q24H IV Last administered on 02/26/18at 13:28; Start 02/26/18 at 12:00 Miscellaneous Information ([facility] Ordered Lab Info) SPECIFIC LAB TO BE ANURAG... ONCE ONCE .XX ; Start 02/28/18 at 11:45; Stop 02/28/18 at 11:46 A/P Problem List: (1) COPD exacerbation ICD Code: J44.1 - Chronic obstructive pulmonary disease with (acute) exacerbation Status: Acute (2) Pneumonia ICD Code: J18.9 - Pneumonia Status: Acute Assessment and Plan This is a 77-year-old female with hx COPD who presented to the emergency department because of shortness of breath, wheezing and productive cough of whitish phlegm. Chest x-ray shows consolidation in the right lung. In the ER she was in resp distress and started on BIPAP. Acute resp hypercarbic RF 2/2 COPD exacerbation. Wean BIPAP, O2 keep sat > 92%, IV steroids and consult Pulmo. She is a full code CAP with failed OP tx . She has sepsis. F/u bllod cx, check sputum cx, urinary legionella and pneumococcal antigen. Stat Zosyn and ct Vanco. Check Lactic acid Patient has history of MAC as well as bronchiectasis and has chronic lung disease Continue incentive spirometry continue antibiotics Add Mucinex Continue duo nebs Hypotension possibly secondary to sepsis from pneumonia we will continue on IV fluids --monitor inputs and outputs Generalized weakness start physical therapy and Occupational Therapy Multiple med conditions of Arthritis, Skin ca, GERD and kidney stones. DVT proph with SCD and SQ heparin Discharge Planning Pending pulmonary improvement Problem Qualifiers (1) Pneumonia: Qualified Codes: J18.1 - Lobar pneumonia, unspecified organism Ehsan Mcintyre DO February 26, 2018 14:44
[2018-02-26] MEDS: SODIUM CHLOR 0.9% 1000 ML INJ 1,000 ML IV SCH (16:34)
--- NOTE | 2018-02-26 20:18 | HHI.PR ---
Subjective Remarks 77 YOWF with Severe COPD,Hypercapnoic RF Weaned to 6LNC Breathing better Alert, awake, family at BS Objective Vital Signs Vital Signs Date Time Temp Pulse Resp B/P (MAP) Pulse Ox O2 Delivery O2 Flow Rate FiO2 02/26/18 17:00 101 26 102/65 (77) 96 02/26/18 16:00 98.9 92 35 88/53 (65) 97 02/26/18 15:00 96 28 93/53 (66) 95 02/26/18 14:00 107 45 95/56 (69) 97 02/26/18 13:00 110 38 93/57 (69) 95 02/26/18 12:36 102 30 73/57 (62) 97 02/26/18 12:00 98.9 104 28 83/53 (63) 97 02/26/18 11:08 97 Nasal Cannula 4.00 02/26/18 11:00 91 28 81/51 (61) 97 02/26/18 10:00 100 30 83/50 (61) 96 02/26/18 09:00 115 34 100/62 (75) 96 02/26/18 08:23 96 35 02/26/18 08:00 98.1 97 24 100/63 (75) 94 02/26/18 06:24 93 35 02/26/18 06:00 106 02/26/18 04:00 114 02/26/18 04:00 98.5 108 28 140/88 (105) 94 02/26/18 02:00 99 02/26/18 01:50 94 35 02/26/18 00:00 98.7 100 25 126/81 (96) 94 02/26/18 00:00 100 02/25/18 22:00 88 I/O 02/25/18 02/25/18 02/25/18 02/26/18 02/26/18 02/26/18 07:00 15:00 23:00 07:00 15:00 23:00 Intake Total 1615.0 ml 200 ml 552 ml 1100 ml 800 ml Output Total 450 ml 400 ml Balance 1615.0 ml 200 ml 102 ml 1100 ml 400 ml Intake Oral 0 ml 600 ml IV Total 1615.0 ml 200 ml 552 ml 1100 ml 200 ml Output Urine Total 450 ml 400 ml # Bowel Movements 0 0 Result Diagram: 02/25/18 0840 02/26/18 0558 Objective Remarks GENERAL: Frail elderly WF, mild sob SKIN: Warm and dry. HEAD: Normocephalic. EYES: No scleral icterus. No injection or drainage. NECK: Supple, trachea midline. No JVD or lymphadenopathy. CARDIOVASCULAR: Regular rate and rhythm without murmurs, gallops, or rubs. RESPIRATORY: Breath sounds equal bilaterally. No accessory muscle use. GASTROINTESTINAL: Abdomen soft, non-tender, nondistended. MUSCULOSKELETAL: No cyanosis, or edema. BACK: Nontender without obvious deformity. No CVA tenderness. A/P Assessment and Plan IMPRESSION: 1. Chronic obstructive pulmonary disease with exacerbation. 2. Hypercapnic respiratory failure. 3. Bronchitis. 4. Pneumonia. 5. Weight loss. PLAN: Aerosol nebs IV Solumedrol Cont Abx Vanco and Zosyn Supplement 02 CPAp prn SQ Heparin DW pt and her son at BS Garrick Stuart MD February 26, 2018 20:18
[2018-02-26] MEDS ORDERED: SODIUM CHLOR 0.9% 250 ML INJ 250 ML IV ONE (22:30)
[2018-02-27] VITALS (16 sets, daily range): BP systolic 92–120; BP diastolic 50–67; PULSE 84–114; RESP 17–30; TEMP 97–98.8; O2SAT 95–99
[2018-02-27] MEDS: PIPERACIL-TAZO 4.5 GM PREMIX 100 ML IV SCH ×4 (04:03→23:00)
[2018-02-27] MEDS: SODIUM CHLOR 0.9% 1000 ML INJ 1,000 ML IV SCH ×2 (04:03→16:37)
[2018-02-27] MEDS: HEPARIN SODIUM - SQ 10,000 UNITS/ML VIAL SQ SCH ×2 (04:04→16:31)
[2018-02-27] MEDS: methylPREDNISolone SOD SUCC 125 MG/2 ML VIAL IV PUSH SCH ×4 (04:04→23:00)
[2018-02-27] MEDS: ASPIRIN EC 81 MG TABEC PO SCH (08:55)
[2018-02-27] MEDS: FLUTICASONE PROPIONATE 44 MCG/ACT 10.6 GM INHALER INH SCH ×2 (08:55→20:49)
[2018-02-27] MEDS: DOCUSATE SODIUM 50 MG/SENNA 8.6 MG TAB PO SCH ×2 (08:55→20:49)
[2018-02-27] MEDS: RESP: ALBUTEROL 2.5 MG/IPRATROPIUM 0.5 MG NEB (SCH) INH ×4 (09:10→20:13)
[2018-02-27] MEDS: VANCOMYCIN INJ 500 MG in SODIUM CHLORIDE 0.9% INJ 100 ML IV SCH (12:30)
[2018-02-27 16:37] LABS: AUTOMATED NEUTROPHIL # 9.8 TH/MM3 (1.8-7.7); BASOPHIL % 0.3 % (0.0-2.0); HEMATOCRIT 36.2 % (35.0-46.0); HEMOGLOBIN 11.9 GM/DL (11.6-15.3); LYMPH % 2.8 % (9.0-44.0); LYMPHOCYTE # 0.3 TH/MM3 (1.0-4.8); MEAN CELL VOLUME 88.8 FL (80.0-100.0); MEAN CORPUSCULAR HEMOGLOBIN 29.1 PG (27.0-34.0); MEAN CORPUSCULAR HGB CONC 32.8 % (32.0-36.0); MEAN PLATELET VOLUME 9.5 FL (7.0-11.0); MONO % 8.4 % (0.0-8.0); MONOCYTE # 0.9 TH/MM3 (0-0.9); NEUT % 88.5 % (16.0-70.0); PLATELET COUNT 147 TH/MM3 (150-450); RED BLOOD COUNT 4.07 MIL/MM3 (4.00-5.30); RED CELL DISTRIBUTION WIDTH 14.8 % (11.6-17.2); WHITE BLOOD COUNT 11.1 TH/MM3 (4.0-11.0)
[2018-02-27 16:49] LABS: ALBUMIN 2.8 GM/DL (3.4-5.0); AST (GOT) 31 U/L (15-37); BICARBONATE 34.5 MEQ/L (21.0-32.0); BLOOD UREA NITROGEN 17 MG/DL (7-18); CALCIUM 8.3 MG/DL (8.5-10.1); CHLORIDE 105 MEQ/L (98-107); CREATININE 0.67 MG/DL (0.50-1.00); GLOMERULAR FILTRATION RATE 85 ML/MIN (>89); GLUCOSE,RANDOM 118 MG/DL (74-106); MAGNESIUM 2.4 MG/DL (1.5-2.5); SODIUM (NA) 145 MEQ/L (136-145)
[2018-02-27 16:59] LABS: ALKALINE PHOSPHATASE 61 U/L (45-117); ALT (GPT) 58 U/L (10-53); FREE T4 0.76 NG/DL (0.76-1.46); PHOSPHORUS 1.7 MG/DL (2.5-4.9); TOTAL BILIRUBIN ADULT 0.2 MG/DL (0.2-1.0); TOTAL PROTEIN 5.6 GM/DL (6.4-8.2)
--- NOTE | 2018-02-27 18:06 | HHI.PR ---
Subjective Remarks Follow-up for shortness of breath Tolerating diet, shortness of breath better, speaks in sentences, feels a lot better than yesterday, no chest pain. Objective Vitals Vital Signs Date Time Temp Pulse Resp B/P (MAP) Pulse Ox O2 Delivery O2 Flow Rate FiO2 02/27/18 16:00 98.3 91 30 120/67 (84) 97 02/27/18 16:00 91 02/27/18 14:00 101 02/27/18 12:00 93 02/27/18 12:00 98.8 93 26 100/55 (70) 99 02/27/18 10:00 114 02/27/18 09:11 99 Nasal Cannula 3.00 02/27/18 08:00 96 02/27/18 08:00 97.0 96 26 119/65 (83) 97 02/27/18 06:00 84 02/27/18 04:33 97 35 02/27/18 04:00 84 02/27/18 04:00 97.9 84 17 96/55 (69) 96 02/27/18 02:00 86 02/27/18 01:04 96 35 02/27/18 00:00 91 02/27/18 00:00 98.0 91 20 92/50 (64) 96 02/26/18 22:00 96 02/26/18 21:24 95 35 02/26/18 20:42 97 Nasal Cannula 3.00 02/26/18 20:00 107 02/26/18 20:00 98.6 107 30 101/57 (72) 94 I/O 02/26/18 02/26/18 02/26/18 02/27/18 02/27/18 02/27/18 07:00 15:00 23:00 07:00 15:00 23:00 Intake Total 552 ml 1100 ml 900 ml 1690 ml 198 ml Output Total 450 ml 400 ml 575 ml Balance 102 ml 1100 ml 500 ml 1115 ml 198 ml Intake Oral 0 ml 600 ml 240 ml IV Total 552 ml 1100 ml 300 ml 1450 ml 198 ml Output Urine Total 450 ml 400 ml 575 ml # Bowel Movements 0 0 0 Result Diagram: 02/27/18 1605 02/27/18 1605 Objective Remarks GENERAL: He can alert and oriented 3 and talkative On nasal cannula. CARDIOVASCULAR: Regular rate and rhythm. S1-S2 no S3 or S4 RESPIRATORY: Coarse breath sounds bilaterally, no crackles or wheezing. GASTROINTESTINAL: Abdomen soft, non-tender, nondistended. MUSCULOSKELETAL: Extremities without clubbing, cyanosis, or edema. NEUROLOGICAL: Awake and alert, oriented 3. No obvious cranial nerve deficits. Procedures NONE A/P Problem List: (1) COPD exacerbation ICD Code: J44.1 - Chronic obstructive pulmonary disease with (acute) exacerbation Status: Acute (2) Pneumonia ICD Code: J18.9 - Pneumonia Status: Acute Assessment and Plan This is a 77-year-old female with hx COPD who presented to the emergency department because of shortness of breath, wheezing and productive cough of whitish phlegm. Chest x-ray shows consolidation in the right lung. In the ER she was in resp distress and started on BIPAP. Acute resp hypercarbic RF 2/2 COPD exacerbation. Wean BIPAP, O2 keep sat > 92%, IV steroids and consult Pulmo. She is a full code CAP with failed OP tx . She has sepsis. Workup negative so far, continue Zosyn and vancomycin. Patient has history of MAC as well as bronchiectasis and has chronic lung disease, continue incentive spirometry, continue duo nebs. Hypotension possibly secondary to sepsis from pneumonia we will continue on IV fluids --monitor inputs and outputs, resolved Generalized weakness start physical therapy and Occupational Therapy Multiple med conditions of Arthritis, Skin ca, GERD and kidney stones. DVT proph with SCD and SQ heparin May transfer to MedSurg floor, discussed with daughter. Problem Qualifiers (1) Pneumonia: Qualified Codes: J18.1 - Lobar pneumonia, unspecified organism Mary King MD February 27, 2018 18:06
--- NOTE | 2018-02-27 20:30 | HHI.PR ---
Subjective Remarks 77 YOWF with Severe COPD,Hypercapnoic RF Weaned to 3LNC Breathing better Alert, awake, family at BS Used CPAP last night Feels stronger Objective Vital Signs Vital Signs Date Time Temp Pulse Resp B/P (MAP) Pulse Ox O2 Delivery O2 Flow Rate FiO2 02/27/18 20:14 97 Nasal Cannula 2.00 02/27/18 18:00 95 02/27/18 16:00 98.3 91 30 120/67 (84) 97 02/27/18 16:00 91 02/27/18 14:00 101 02/27/18 12:00 93 02/27/18 12:00 98.8 93 26 100/55 (70) 99 02/27/18 10:00 114 02/27/18 09:11 99 Nasal Cannula 3.00 02/27/18 08:00 96 02/27/18 08:00 97.0 96 26 119/65 (83) 97 02/27/18 06:00 84 02/27/18 04:33 97 35 02/27/18 04:00 84 02/27/18 04:00 97.9 84 17 96/55 (69) 96 02/27/18 02:00 86 02/27/18 01:04 96 35 02/27/18 00:00 91 02/27/18 00:00 98.0 91 20 92/50 (64) 96 02/26/18 22:00 96 02/26/18 21:24 95 35 02/26/18 20:42 97 Nasal Cannula 3.00 I/O 02/26/18 02/26/18 02/26/18 02/27/18 02/27/18 02/27/18 07:00 15:00 23:00 07:00 15:00 23:00 Intake Total 552 ml 1100 ml 900 ml 1690 ml 198 ml 1820 ml Output Total 450 ml 400 ml 575 ml Balance 102 ml 1100 ml 500 ml 1115 ml 198 ml 1820 ml Intake Oral 0 ml 600 ml 240 ml 725 ml IV Total 552 ml 1100 ml 300 ml 1450 ml 198 ml 1095 ml Output Urine Total 450 ml 400 ml 575 ml # Voids 4 # Bowel Movements 0 0 0 Result Diagram: 02/27/18 1605 02/27/18 1605 Objective Remarks GENERAL: Frail elderly WF, mild sob SKIN: Warm and dry. HEAD: Normocephalic. EYES: No scleral icterus. No injection or drainage. NECK: Supple, trachea midline. No JVD or lymphadenopathy. CARDIOVASCULAR: Regular rate and rhythm without murmurs, gallops, or rubs. RESPIRATORY: Breath sounds equal bilaterally. No accessory muscle use. GASTROINTESTINAL: Abdomen soft, non-tender, nondistended. MUSCULOSKELETAL: No cyanosis, or edema. BACK: Nontender without obvious deformity. No CVA tenderness. A/P Assessment and Plan IMPRESSION: 1. Chronic obstructive pulmonary disease with exacerbation. 2. Hypercapnic respiratory failure. 3. Bronchitis. 4. Pneumonia. 5. Weight loss. PLAN: Aerosol nebs IV Solumedrol Cont Abx Vanco and Zosyn Supplement 02 CPAP prn SQ Heparin Garrick Stuart MD February 27, 2018 20:30
[2018-02-27] MEDS: MUPIROCIN 2% OINT 1 APPLIC/GM SYR EACH NARE SCH (20:49)
[2018-02-28] VITALS (10 sets, daily range): BP systolic 97–124; BP diastolic 53–78; PULSE 85–100; RESP 16–18; TEMP 97.9–98.7; O2SAT 93–98
[2018-02-28] MEDS: HEPARIN SODIUM - SQ 10,000 UNITS/ML VIAL SQ SCH ×2 (05:51→17:19)
[2018-02-28] MEDS: methylPREDNISolone SOD SUCC 125 MG/2 ML VIAL IV PUSH SCH ×2 (05:51→10:19)
[2018-02-28] MEDS: PIPERACIL-TAZO 4.5 GM PREMIX 100 ML IV SCH ×4 (05:51→22:38)
[2018-02-28] MEDS: SODIUM CHLOR 0.9% 1000 ML INJ 1,000 ML IV SCH ×2 (05:51→17:19)
[2018-02-28] MEDS: RESP: ALBUTEROL 2.5 MG/IPRATROPIUM 0.5 MG NEB (SCH) INH ×4 (08:35→19:38)
[2018-02-28 09:29] LABS: CREATININE 0.54 MG/DL (0.50-1.00)
[2018-02-28] MEDS: MUPIROCIN 2% OINT 1 APPLIC/GM SYR EACH NARE SCH ×2 (10:18→21:00)
[2018-02-28] MEDS: ASPIRIN EC 81 MG TABEC PO SCH (10:19)
[2018-02-28] MEDS: DOCUSATE SODIUM 50 MG/SENNA 8.6 MG TAB PO SCH ×2 (10:19→22:38)
[2018-02-28] MEDS: FLUTICASONE PROPIONATE 44 MCG/ACT 10.6 GM INHALER INH SCH ×2 (10:20→22:38)
[2018-02-28] MEDS ORDERED: PHARMACY ORDERED LAB ONE (11:45)
[2018-02-28] MEDS: VANCOMYCIN INJ 500 MG in SODIUM CHLORIDE 0.9% INJ 100 ML IV SCH (11:54)
[2018-02-28 12:24] LABS: HEMOGLOBIN A1C 5.8 % (4.3-6.0)
--- NOTE | 2018-02-28 15:24 | HHI.PR ---
Subjective Remarks COPD exacerbation improving. Patient is not yet to baseline. At baseline she uses 2 L of oxygen about 12 hours per day. No other new complaints today. She has not yet attempted longer distances of ambulation. Objective Vital Signs Date Time Temp Pulse Resp B/P (MAP) Pulse Ox O2 Delivery O2 Flow Rate FiO2 02/28/18 12:00 98.1 94 18 107/57 (74) 96 02/28/18 08:42 98 Nasal Cannula 3.00 02/28/18 08:00 97.9 85 18 115/66 (82) 98 02/28/18 06:01 98.2 93 18 107/59 (75) 96 02/28/18 02:30 97 4.00 02/28/18 00:00 98.5 100 16 124/66 (85) 98 02/28/18 00:00 100 02/27/18 22:00 84 02/27/18 20:14 97 Nasal Cannula 2.00 02/27/18 20:00 98.3 90 24 113/64 (80) 95 02/27/18 20:00 90 02/27/18 18:00 95 02/27/18 16:00 98.3 91 30 120/67 (84) 97 02/27/18 16:00 91 I/O 02/27/18 02/27/18 02/27/18 02/28/18 02/28/18 02/28/18 07:00 15:00 23:00 07:00 15:00 23:00 Intake Total 1690 ml 198 ml 1820 ml Output Total 575 ml Balance 1115 ml 198 ml 1820 ml Intake Oral 240 ml 725 ml IV Total 1450 ml 198 ml 1095 ml Output Urine Total 575 ml # Voids 4 1 # Bowel Movements 0 1 Result Diagram: 02/27/18 1605 02/28/18 0848 Objective Remarks GENERAL: NAD, A&Ox3 HEAD: Normocephalic. NECK: Supple, trachea midline. No lymphadenopathy. EYES: No scleral icterus. No injection or drainage. CARDIOVASCULAR: Regular rate and rhythm without murmurs, gallops, or rubs. RESPIRATORY: Breath sounds equal bilaterally. No accessory muscle use. GASTROINTESTINAL: Abdomen soft, non-tender, nondistended. MUSCULOSKELETAL: No cyanosis, or edema. SKIN: Warm and dry. NEURO: No focal neurological deficitis. A/P Problem List: (1) COPD (chronic obstructive pulmonary disease) ICD Code: J44.9 - Chronic obstructive pulmonary disease Status: Acute (2) Pneumonia ICD Code: J18.9 - Pneumonia Status: Acute (3) COPD exacerbation ICD Code: J44.1 - Chronic obstructive pulmonary disease with (acute) exacerbation Status: Acute Assessment and Plan 77-year-old female admitted secondary to COPD exacerbation with respiratory distress and hypoxia COPD exacerbation Acute respiratory distress Hypoxia Patient is now off BiPAP Continue to wean oxygen towards baseline Continue Zosyn and vancomycin Continue incentive spirometry Continue duo nebs Hypotension Resolved Generalized weakness Continue physical therapy Continue occupational therapy DVT prophylaxis Heparin Problem Qualifiers (1) COPD (chronic obstructive pulmonary disease): Qualified Codes: J44.9 - Chronic obstructive pulmonary disease, unspecified (2) Pneumonia: Qualified Codes: J18.1 - Lobar pneumonia, unspecified organism Serafin Baker MD February 28, 2018 15:23
--- NOTE | 2018-02-28 15:58 | HHI.PR ---
Subjective Remarks 77 YOWF with Severe COPD,Hypercapnoic RF Weaned to 3LNC Breathing better Alert, awake, family at BS Used CPAP last night Feels stronger Objective Vital Signs Vital Signs Date Time Temp Pulse Resp B/P (MAP) Pulse Ox O2 Delivery O2 Flow Rate FiO2 02/28/18 12:00 98.1 94 18 107/57 (74) 96 02/28/18 08:42 98 Nasal Cannula 3.00 02/28/18 08:00 97.9 85 18 115/66 (82) 98 02/28/18 06:01 98.2 93 18 107/59 (75) 96 02/28/18 02:30 97 4.00 02/28/18 00:00 98.5 100 16 124/66 (85) 98 02/28/18 00:00 100 02/27/18 22:00 84 02/27/18 20:14 97 Nasal Cannula 2.00 02/27/18 20:00 98.3 90 24 113/64 (80) 95 02/27/18 20:00 90 02/27/18 18:00 95 02/27/18 16:00 98.3 91 30 120/67 (84) 97 02/27/18 16:00 91 I/O 02/27/18 02/27/18 02/27/18 02/28/18 02/28/18 02/28/18 07:00 15:00 23:00 07:00 15:00 23:00 Intake Total 1690 ml 198 ml 1820 ml Output Total 575 ml Balance 1115 ml 198 ml 1820 ml Intake Oral 240 ml 725 ml IV Total 1450 ml 198 ml 1095 ml Output Urine Total 575 ml # Voids 4 1 # Bowel Movements 0 1 Result Diagram: 02/27/18 1605 02/28/18 0848 Objective Remarks GENERAL: Frail elderly WF, mild sob SKIN: Warm and dry. HEAD: Normocephalic. EYES: No scleral icterus. No injection or drainage. NECK: Supple, trachea midline. No JVD or lymphadenopathy. CARDIOVASCULAR: Regular rate and rhythm without murmurs, gallops, or rubs. RESPIRATORY: Breath sounds equal bilaterally. No accessory muscle use. GASTROINTESTINAL: Abdomen soft, non-tender, nondistended. MUSCULOSKELETAL: No cyanosis, or edema. BACK: Nontender without obvious deformity. No CVA tenderness. A/P Assessment and Plan IMPRESSION: 1. Chronic obstructive pulmonary disease with exacerbation. 2. Hypercapnic respiratory failure. 3. Bronchitis. 4. Pneumonia. 5. Weight loss. PLAN: Aerosol nebs DC Solumedrol Prednisone 20 mg bid Cont Abx Vanco and Zosyn Supplement 02 CPAP prn SQ Heparin DC Plans underway. Garrick Stuart MD February 28, 2018 15:58
[2018-02-28] MEDS: predniSONE 20 MG TAB PO SCH (22:37)
[2018-03-01] MEDS: PIPERACIL-TAZO 4.5 GM PREMIX 100 ML IV SCH ×4 (05:21→23:24)
[2018-03-01] MEDS: guaiFENesin E.R. 600 MG TAB PO PRN (05:21)
[2018-03-01] MEDS: SODIUM CHLOR 0.9% 1000 ML INJ 1,000 ML IV SCH ×2 (05:22→23:25)
[2018-03-01] MEDS: HEPARIN SODIUM - SQ 10,000 UNITS/ML VIAL SQ SCH ×2 (05:26→17:34)
[2018-03-01 08:00] VITALS: BP 113/58; PULSE 77; RESP 18; TEMP 97.9; O2SAT 96
[2018-03-01] MEDS: RESP: ALBUTEROL 2.5 MG/IPRATROPIUM 0.5 MG NEB (SCH) INH ×4 (08:00→20:00)
[2018-03-01] MEDS: MUPIROCIN 2% OINT 1 APPLIC/GM SYR EACH NARE SCH ×2 (09:00→23:37)
[2018-03-01] MEDS: DOCUSATE SODIUM 50 MG/SENNA 8.6 MG TAB PO SCH ×2 (09:00→23:24)
[2018-03-01] MEDS: ASPIRIN EC 81 MG TABEC PO SCH (10:29)
[2018-03-01] MEDS: predniSONE 20 MG TAB PO SCH ×2 (10:29→23:32)
[2018-03-01 12:00] VITALS: BP 117/56; PULSE 91; RESP 18; TEMP 97.9; O2SAT 94
[2018-03-01 12:25] VITALS: O2SAT 93
[2018-03-01] MEDS: FLUTICASONE PROPIONATE 44 MCG/ACT 10.6 GM INHALER INH SCH ×2 (12:51→23:33)
--- NOTE | 2018-03-01 14:36 | HHI.PR ---
Subjective Remarks COPD exacerbation has improved. She is at 3 L of oxygen at this point. Plan is to return to home so she will need to be near her baseline usage. She says she uses her oxygen at 2 L/min at home. She is starting to work well with PT. Short distances at this time. Objective Vital Signs Date Time Temp Pulse Resp B/P (MAP) Pulse Ox O2 Delivery O2 Flow Rate FiO2 03/01/18 12:25 93 Nasal Cannula 3.00 03/01/18 12:00 97.9 91 18 117/56 (76) 94 03/01/18 08:00 97.9 77 18 113/58 (76) 96 02/28/18 23:00 98.5 93 18 97/53 (68) 95 02/28/18 20:57 98.3 97 18 110/58 (75) 94 02/28/18 19:39 93 Nasal Cannula 3.00 02/28/18 16:00 98.7 96 18 115/78 (90) 98 I/O 02/28/18 02/28/18 02/28/18 03/01/18 03/01/18 03/01/18 07:00 15:00 23:00 07:00 15:00 23:00 Output Total 1000 ml Balance -1000 ml Output Urine Total 1000 ml # Voids 1 4 # Bowel Movements 1 Result Diagram: 02/27/18 1605 02/28/18 0848 Objective Remarks GENERAL: NAD, A&Ox3 HEAD: Normocephalic. NECK: Supple, trachea midline. No lymphadenopathy. EYES: No scleral icterus. No injection or drainage. CARDIOVASCULAR: Regular rate and rhythm without murmurs, gallops, or rubs. RESPIRATORY: Breath sounds equal bilaterally. No accessory muscle use. GASTROINTESTINAL: Abdomen soft, non-tender, nondistended. MUSCULOSKELETAL: No cyanosis, or edema. SKIN: Warm and dry. NEURO: No focal neurological deficitis. A/P Problem List: (1) COPD (chronic obstructive pulmonary disease) ICD Code: J44.9 - Chronic obstructive pulmonary disease Status: Acute (2) Pneumonia ICD Code: J18.9 - Pneumonia Status: Acute (3) COPD exacerbation ICD Code: J44.1 - Chronic obstructive pulmonary disease with (acute) exacerbation Status: Acute Assessment and Plan 77-year-old female admitted secondary to COPD exacerbation with respiratory distress and hypoxia Continue to wean oxygen towards 2 L/min. Continue working with PT to increase function. Continue to treat COPD exacerbation. COPD exacerbation Acute respiratory distress Hypoxia Patient is now off BiPAP Continue to wean oxygen towards baseline Continue Zosyn and vancomycin Continue incentive spirometry Continue duo nebs Hypotension Resolved Generalized weakness Continue physical therapy Continue occupational therapy DVT prophylaxis Heparin Problem Qualifiers (1) COPD (chronic obstructive pulmonary disease): Qualified Codes: J44.9 - Chronic obstructive pulmonary disease, unspecified (2) Pneumonia: Qualified Codes: J18.1 - Lobar pneumonia, unspecified organism Serafin Baker MD March 01, 2018 14:36
[2018-03-01 16:00] VITALS: BP 138/77; PULSE 88; RESP 18; TEMP 97.8; O2SAT 92
[2018-03-01 16:13] VITALS: O2SAT 92
[2018-03-01] MEDS: VANCOMYCIN INJ 500 MG in SODIUM CHLORIDE 0.9% INJ 100 ML IV SCH (16:37)
--- NOTE | 2018-03-01 18:06 | HHI.PR ---
Subjective Remarks 77 YOWF with Severe COPD,Hypercapnoic RF Weaned to 3LNC Breathing better Alert, awake, family at BS Gets sob with any activity Feels stronger Objective Vital Signs Vital Signs Date Time Temp Pulse Resp B/P (MAP) Pulse Ox O2 Delivery O2 Flow Rate FiO2 03/01/18 16:13 92 Nasal Cannula 3.00 03/01/18 16:00 97.8 88 18 138/77 (97) 92 03/01/18 12:25 93 Nasal Cannula 3.00 03/01/18 12:00 97.9 91 18 117/56 (76) 94 03/01/18 08:00 97.9 77 18 113/58 (76) 96 02/28/18 23:00 98.5 93 18 97/53 (68) 95 02/28/18 20:57 98.3 97 18 110/58 (75) 94 02/28/18 19:39 93 Nasal Cannula 3.00 I/O 02/28/18 02/28/18 02/28/18 03/01/18 03/01/18 03/01/18 07:00 15:00 23:00 07:00 15:00 23:00 Output Total 1000 ml Balance -1000 ml Output Urine Total 1000 ml # Voids 1 4 4 # Bowel Movements 1 3 Result Diagram: 02/27/18 1605 02/28/18 0848 Objective Remarks GENERAL: Frail elderly WF, mild sob SKIN: Warm and dry. HEAD: Normocephalic. EYES: No scleral icterus. No injection or drainage. NECK: Supple, trachea midline. No JVD or lymphadenopathy. CARDIOVASCULAR: Regular rate and rhythm without murmurs, gallops, or rubs. RESPIRATORY: Breath sounds equal bilaterally. No accessory muscle use. GASTROINTESTINAL: Abdomen soft, non-tender, nondistended. MUSCULOSKELETAL: No cyanosis, or edema. BACK: Nontender without obvious deformity. No CVA tenderness. A/P Assessment and Plan IMPRESSION: 1. Chronic obstructive pulmonary disease with exacerbation. 2. Hypercapnic respiratory failure. 3. Bronchitis. 4. Pneumonia. 5. Weight loss. PLAN: Aerosol nebs Prednisone 20 mg bid Cont Abx Vanco and Zosyn Supplement 02 CPAP prn SQ Heparin DC Plans underway. Available prn over weekend. Garrick Stuart MD March 01, 2018 18:06
[2018-03-01 20:00] VITALS: BP 145/65; PULSE 86; RESP 18; TEMP 98.3; O2SAT 93
[2018-03-02] VITALS (7 sets, daily range): BP systolic 119–139; BP diastolic 57–73; PULSE 71–99; RESP 18; TEMP 97.8–98.7; O2SAT 92–96
[2018-03-02] MEDS: PIPERACIL-TAZO 4.5 GM PREMIX 100 ML IV SCH ×4 (04:15→22:41)
[2018-03-02] MEDS: HEPARIN SODIUM - SQ 10,000 UNITS/ML VIAL SQ SCH ×2 (04:15→17:26)
[2018-03-02 08:43] LABS: CREATININE 0.44 MG/DL (0.50-1.00)
[2018-03-02] MEDS: DOCUSATE SODIUM 50 MG/SENNA 8.6 MG TAB PO SCH ×2 (09:00→21:00)
[2018-03-02] MEDS: predniSONE 20 MG TAB PO SCH ×2 (09:04→22:41)
[2018-03-02] MEDS: FLUTICASONE PROPIONATE 44 MCG/ACT 10.6 GM INHALER INH SCH ×2 (09:05→22:42)
[2018-03-02] MEDS: ASPIRIN EC 81 MG TABEC PO SCH (09:05)
[2018-03-02] MEDS: MUPIROCIN 2% OINT 1 APPLIC/GM SYR EACH NARE SCH ×2 (09:08→22:47)
[2018-03-02] MEDS: LACTOBACILLUS ACIDOPHILUS TAB PO SCH ×2 (13:00→18:00)
--- NOTE | 2018-03-02 13:00 | HHI.PR ---
Subjective Remarks Patient remains on 3 L when seen this morning. COPD exacerbation appears to be improving slowly. She complains of diarrhea overnight. Objective Vital Signs Date Time Temp Pulse Resp B/P (MAP) Pulse Ox O2 Delivery O2 Flow Rate FiO2 03/02/18 12:00 98.7 99 18 119/57 (77) 92 03/02/18 08:00 97.8 91 18 133/63 (86) 96 03/02/18 04:00 98.3 84 18 133/64 (87) 94 03/02/18 00:00 98.0 85 18 127/64 (85) 94 03/01/18 20:00 98.3 86 18 145/65 (91) 93 03/01/18 16:13 92 Nasal Cannula 3.00 03/01/18 16:00 97.8 88 18 138/77 (97) 92 I/O 03/01/18 03/01/18 03/01/18 03/02/18 03/02/18 03/02/18 07:00 15:00 23:00 07:00 15:00 23:00 # Voids 4 4 4 # Bowel Movements 3 Result Diagram: 02/27/18 1605 03/02/18 0729 Objective Remarks GENERAL: NAD, A&Ox3 HEAD: Normocephalic. NECK: Supple, trachea midline. No lymphadenopathy. EYES: No scleral icterus. No injection or drainage. CARDIOVASCULAR: Regular rate and rhythm without murmurs, gallops, or rubs. RESPIRATORY: Breath sounds equal bilaterally. No accessory muscle use. GASTROINTESTINAL: Abdomen soft, non-tender, nondistended. MUSCULOSKELETAL: No cyanosis, or edema. SKIN: Warm and dry. NEURO: No focal neurological deficitis. A/P Problem List: (1) COPD (chronic obstructive pulmonary disease) ICD Code: J44.9 - Chronic obstructive pulmonary disease Status: Acute (2) Pneumonia ICD Code: J18.9 - Pneumonia Status: Acute (3) COPD exacerbation ICD Code: J44.1 - Chronic obstructive pulmonary disease with (acute) exacerbation Status: Acute Assessment and Plan 77-year-old female admitted secondary to COPD exacerbation with respiratory distress and hypoxia COPD exacerbation ongoing but improving. Wean oxygen as tolerated. Currently patient is on 3 L/min. Continue to wean oxygen towards 2 L/min. Continue working with PT to increase function. Diarrhea As this patient is on IV antibiotics we will do C. difficile testing Probiotics COPD exacerbation Acute respiratory distress Hypoxia Patient is now off BiPAP Continue to wean oxygen towards baseline Continue Zosyn and vancomycin Continue incentive spirometry Continue duo nebs Hypotension Resolved Generalized weakness Continue physical therapy Continue occupational therapy DVT prophylaxis Heparin Problem Qualifiers (1) COPD (chronic obstructive pulmonary disease): Qualified Codes: J44.9 - Chronic obstructive pulmonary disease, unspecified (2) Pneumonia: Qualified Codes: J18.1 - Lobar pneumonia, unspecified organism Serafin Baker MD March 02, 2018 13:00
--- NOTE | 2018-03-02 13:02 | HHI.FF ---
Face to Face Verification Diagnosis: (1) Pneumonia (2) COPD exacerbation (3) COPD (chronic obstructive pulmonary disease) Physical Therapy Order: Evaluate and Treat, Improve ambulation, Strength and gait training Home Health Nursing Order: Oxygen administration education Nursing assessment with vital signs I have seen patient Christina Coombs on 03/02/18. My clinical findings support the need for the requested home health care services because: Ltd mobility - disease progression Patient has SOB Deconditioned w/ increased weakness Limited ability to care for self High risk of falls I certify that my clinical findings support that this patient is homebound because: Hx COPD- exertion dyspnea/weakness Unsteady gait/balance Unsafe to leave home unassisted Unable to use public transportation Serafin Baker MD March 02, 2018 13:02
[2018-03-02] MEDS ORDERED: PHARMACY ORDERED LAB ONE (14:45)
[2018-03-02] MEDS: VANCOMYCIN INJ 500 MG in SODIUM CHLORIDE 0.9% INJ 100 ML IV SCH (15:12)
[2018-03-03] VITALS (7 sets, daily range): BP systolic 116–138; BP diastolic 63–83; PULSE 69–117; RESP 18–20; TEMP 97.5–98; O2SAT 92–97
[2018-03-03] MEDS: guaiFENesin E.R. 600 MG TAB PO PRN ×2 (06:27→21:46)
[2018-03-03] MEDS: HEPARIN SODIUM - SQ 10,000 UNITS/ML VIAL SQ SCH ×2 (06:40→16:40)
[2018-03-03] MEDS: MUPIROCIN 2% OINT 1 APPLIC/GM SYR EACH NARE SCH ×2 (09:00→21:52)
[2018-03-03] MEDS: AMOXICILLIN/CLAVULANATE K 875 MG TAB PO SCH ×2 (09:01→21:46)
[2018-03-03] MEDS: LACTOBACILLUS ACIDOPHILUS TAB PO SCH ×3 (09:01→16:39)
[2018-03-03] MEDS: predniSONE 20 MG TAB PO SCH ×2 (09:01→21:46)
[2018-03-03] MEDS: AZITHROMYCIN 250 MG TAB PO SCH (09:01)
[2018-03-03] MEDS: ASPIRIN EC 81 MG TABEC PO SCH (09:01)
[2018-03-03] MEDS: FLUTICASONE PROPIONATE 44 MCG/ACT 10.6 GM INHALER INH SCH ×2 (09:02→21:48)
--- NOTE | 2018-03-03 11:26 | HHI.PR ---
Subjective Remarks Congestion overnight. Wheezing still present. Oxygen at 3L/min, which is above baseline. Not yet safe for discharge, high risk for readmission if discharge in her current state. Objective Vital Signs Date Time Temp Pulse Resp B/P (MAP) Pulse Ox O2 Delivery O2 Flow Rate FiO2 03/03/18 08:00 97.5 103 18 116/73 (87) 96 03/03/18 03:45 97.6 75 20 118/67 (84) 96 03/03/18 00:45 97.6 89 19 120/75 (90) 96 03/02/18 20:57 Nasal Cannula 3.00 03/02/18 20:30 98.0 94 18 121/73 (89) 95 03/02/18 16:00 97.9 71 18 139/63 (88) 96 03/02/18 13:37 94 Nasal Cannula 3.00 03/02/18 13:37 BiPAP 03/02/18 12:00 98.7 99 18 119/57 (77) 92 I/O 03/02/18 03/02/18 03/02/18 03/03/18 03/03/18 03/03/18 07:00 15:00 23:00 07:00 15:00 23:00 Intake Total 550 ml 700 ml Balance 550 ml 700 ml Intake Oral 550 ml 700 ml # Voids 4 3 4 # Bowel Movements 0 0 Result Diagram: 02/27/18 1605 03/02/18 0729 Objective Remarks GENERAL: NAD, A&Ox3 HEAD: Normocephalic. NECK: Supple, trachea midline. No lymphadenopathy. EYES: No scleral icterus. No injection or drainage. CARDIOVASCULAR: Regular rate and rhythm without murmurs, gallops, or rubs. RESPIRATORY: Breath sounds equal bilaterally. No accessory muscle use. GASTROINTESTINAL: Abdomen soft, non-tender, nondistended. MUSCULOSKELETAL: No cyanosis, or edema. SKIN: Warm and dry. NEURO: No focal neurological deficitis. A/P Problem List: (1) COPD (chronic obstructive pulmonary disease) ICD Code: J44.9 - Chronic obstructive pulmonary disease Status: Acute (2) Pneumonia ICD Code: J18.9 - Pneumonia Status: Acute (3) COPD exacerbation ICD Code: J44.1 - Chronic obstructive pulmonary disease with (acute) exacerbation Status: Acute Assessment and Plan 77-year-old female admitted secondary to COPD exacerbation with respiratory distress and hypoxia Congestion overnight, treated with Mucinex. Wheezing still present, continue breathing treatments and steroids. Oxygen at 3L/min, which is above baseline. Not yet safe for discharge, high risk for readmission if discharge in her current state. Diarrhea As this patient is on IV antibiotics we will do C. difficile testing Probiotics COPD exacerbation Acute respiratory distress Hypoxia Patient is now off BiPAP Continue to wean oxygen towards baseline Continue Zosyn and vancomycin Continue incentive spirometry Continue duo nebs Hypotension Resolved Generalized weakness Continue physical therapy Continue occupational therapy DVT prophylaxis Heparin Problem Qualifiers (1) COPD (chronic obstructive pulmonary disease): Qualified Codes: J44.9 - Chronic obstructive pulmonary disease, unspecified (2) Pneumonia: Qualified Codes: J18.1 - Lobar pneumonia, unspecified organism Serafin Baker MD March 03, 2018 11:26
[2018-03-03] MEDS: RESP: ALBUTEROL 2.5 MG/3 ML NEB (PRN) INH (19:48)
[2018-03-03] MEDS: DOCUSATE SODIUM 50 MG/SENNA 8.6 MG TAB PO SCH (21:00)
[2018-03-04 00:20] VITALS: BP 122/70; PULSE 89; RESP 18; TEMP 98; O2SAT 98
[2018-03-04 03:00] VITALS: BP 117/74; PULSE 80; RESP 18; TEMP 98.1; O2SAT 98
[2018-03-04] MEDS: HEPARIN SODIUM - SQ 10,000 UNITS/ML VIAL SQ SCH ×2 (05:59→17:24)
[2018-03-04 08:01] LABS: CREATININE 0.38 MG/DL (0.50-1.00)
[2018-03-04] MEDS: AMOXICILLIN/CLAVULANATE K 875 MG TAB PO SCH ×2 (09:22→23:21)
[2018-03-04] MEDS: AZITHROMYCIN 250 MG TAB PO SCH (09:22)
[2018-03-04] MEDS: predniSONE 20 MG TAB PO SCH (09:22)
[2018-03-04] MEDS: DOCUSATE SODIUM 50 MG/SENNA 8.6 MG TAB PO SCH (09:22)
[2018-03-04] MEDS: LACTOBACILLUS ACIDOPHILUS TAB PO SCH ×3 (09:22→17:24)
[2018-03-04] MEDS: FLUTICASONE PROPIONATE 44 MCG/ACT 10.6 GM INHALER INH SCH ×2 (09:23→23:22)
[2018-03-04] MEDS: MUPIROCIN 2% OINT 1 APPLIC/GM SYR EACH NARE SCH ×2 (09:23→23:21)
[2018-03-04] MEDS: ASPIRIN EC 81 MG TABEC PO SCH (09:23)
[2018-03-04 12:00] VITALS: BP 110/63; PULSE 94; RESP 18; TEMP 97.8; O2SAT 96
--- NOTE | 2018-03-04 12:13 | HHI.PR ---
Subjective Remarks F/U COPD and PNA. States he is getting better denies wheezing but has not been ambulating in the hallway. At baseline, she goes out to grocery shopping the most activity she has done here is to use the restroom. Also on 2 L nasal cannula at home currently on 3 L. Discussed with nursing and physical therapy. Objective Vitals Vital Signs Date Time Temp Pulse Resp B/P (MAP) Pulse Ox O2 Delivery O2 Flow Rate FiO2 03/04/18 03:00 98.1 80 18 117/74 (88) 98 03/04/18 00:20 98.0 89 18 122/70 (87) 98 03/03/18 21:45 98.0 69 18 122/63 (82) 97 03/03/18 19:54 96 Nasal Cannula 3.00 03/03/18 16:00 98.0 110 18 138/83 (101) 92 I/O 03/03/18 03/03/18 03/03/18 03/04/18 03/04/18 03/04/18 07:00 15:00 23:00 07:00 15:00 23:00 Intake Total 700 ml 750 ml Balance 700 ml 750 ml Intake Oral 700 ml 750 ml # Voids 4 1 # Bowel Movements 0 0 Result Diagram: 03/04/18 0621 Imaging Last Impressions Chest X-Ray 02/25/18 0000 Signed Impressions: Service Date/Time: Sunday, February 25, 2018 08:24 - CONCLUSION: Increased airspace opacity, likely consolidation, in the medial aspect of the right upper lobe. There is also likely some degree of volume loss in this area given the superior traction of the right hilum. Although nonspecific this could represent an infectious process in the appropriate clinical setting. Micheal Geiger MD Objective Remarks GENERAL: NAD, A&Ox3 HEAD: Normocephalic. NECK: Supple, trachea midline. No lymphadenopathy. EYES: No scleral icterus. No injection or drainage. CARDIOVASCULAR: Regular rate and rhythm without murmurs, gallops, or rubs. RESPIRATORY: Breath sounds equal bilaterally. No accessory muscle use. GASTROINTESTINAL: Abdomen soft, non-tender, nondistended. MUSCULOSKELETAL: No cyanosis, or edema. SKIN: Warm and dry. NEURO: No focal neurological deficits. Procedures NONE A/P Problem List: (1) COPD exacerbation ICD Code: J44.1 - Chronic obstructive pulmonary disease with (acute) exacerbation Status: Acute (2) Pneumonia ICD Code: J18.9 - Pneumonia Status: Acute Assessment and Plan 77-year-old female admitted secondary to COPD exacerbation with respiratory distress and hypoxia Diarrhea. Improving discontinue Aurea-Colace and continue probiotics. Follow- up C. difficile COPD exacerbation Acute respiratory distress Hypoxia Pneumonia Improving. Patient is now off BiPAP Continue to wean oxygen towards baseline Discontinue Augmentin and azithromycin patient already received at least 7 days of antibiotics cultures negative Continue incentive spirometry Continue duo nebs Wean prednisone to 20 mg daily. She is on chronic prednisone 10 mg daily Hypotension Resolved Generalized weakness. Improving Continue physical therapy Continue occupational therapy DVT prophylaxis Heparin Discharge Planning Possible discharge in the morning Problem Qualifiers (1) Pneumonia: Qualified Codes: J18.1 - Lobar pneumonia, unspecified organism Vaibhav Roman MD March 04, 2018 12:13
--- NOTE | 2018-03-04 12:16 | HHI.DCPOC ---
Discharge Care Plan Diagnosis: (1) COPD exacerbation Your Health Problems Are: Difficulty with ADL Exercise Tolerance Goals to Promote Your Health * To prevent worsening of your condition and complications * To maintain your health at the optimal level Directions to Meet Your Goals Take your medications as prescribed Follow your dietary instruction Follow activity as directed Keep your appointments as scheduled Take your immunizations and boosters as scheduled If your symptoms worsen call your PCP, if no PCP go to Urgent Care Center or Emergency Room Smoking is Dangerous to Your Health. Avoid second hand smoke Call the 24-hour hour crisis hotline for domestic abuse at Vaibhav Roman MD March 04, 2018 12:16
[2018-03-04 16:00] VITALS: BP 103/56; PULSE 97; RESP 18; TEMP 98.1; O2SAT 95
--- NOTE | 2018-03-04 20:03 | HHI.PR ---
Subjective Remarks 77 YOWF with Severe COPD,Hypercapnoic RF Weaned to 3LNC Breathing better Alert, awake, family at BS Gets sob with any activity Feels stronger Ambulates Objective Vital Signs Vital Signs Date Time Temp Pulse Resp B/P (MAP) Pulse Ox O2 Delivery O2 Flow Rate FiO2 03/04/18 16:00 98.1 97 18 103/56 (72) 95 03/04/18 12:00 97.8 94 18 110/63 (79) 96 03/04/18 03:00 98.1 80 18 117/74 (88) 98 03/04/18 00:20 98.0 89 18 122/70 (87) 98 03/03/18 21:45 98.0 69 18 122/63 (82) 97 I/O 03/03/18 03/03/18 03/03/18 03/04/18 03/04/18 03/04/18 07:00 15:00 23:00 07:00 15:00 23:00 Intake Total 700 ml 750 ml Balance 700 ml 750 ml Intake Oral 700 ml 750 ml # Voids 4 1 # Bowel Movements 0 0 Result Diagram: 03/04/18 0621 Objective Remarks GENERAL: Frail elderly WF, mild sob SKIN: Warm and dry. HEAD: Normocephalic. EYES: No scleral icterus. No injection or drainage. NECK: Supple, trachea midline. No JVD or lymphadenopathy. CARDIOVASCULAR: Regular rate and rhythm without murmurs, gallops, or rubs. RESPIRATORY: Breath sounds equal bilaterally. No accessory muscle use. GASTROINTESTINAL: Abdomen soft, non-tender, nondistended. MUSCULOSKELETAL: No cyanosis, or edema. BACK: Nontender without obvious deformity. No CVA tenderness. A/P Assessment and Plan IMPRESSION: 1. Chronic obstructive pulmonary disease with exacerbation. 2. Hypercapnic respiratory failure. 3. Bronchitis. 4. Pneumonia. 5. Weight loss. PLAN: Aerosol nebs Prednisone 20 mg bid Cont Abx Vanco and Zosyn Supplement 02 CPAP prn SQ Heparin Garrick Stuart MD March 04, 2018 20:03
[2018-03-04 20:37] VITALS: BP 111/56; PULSE 88; RESP 18; TEMP 97.5; O2SAT 96
[2018-03-05 00:49] VITALS: BP 114/63; PULSE 77; RESP 18; TEMP 98.2; O2SAT 94
[2018-03-05] MEDS: HEPARIN SODIUM - SQ 10,000 UNITS/ML VIAL SQ SCH (04:57)
[2018-03-05 05:04] VITALS: BP 96/52; PULSE 79; RESP 18; TEMP 97.5; O2SAT 94
[2018-03-05 07:44] VITALS: BP 108/64; PULSE 98; RESP 20; TEMP 97.7; O2SAT 96
[2018-03-05] MEDS: LACTOBACILLUS ACIDOPHILUS TAB PO SCH (07:44)
[2018-03-05] MEDS: MUPIROCIN 2% OINT 1 APPLIC/GM SYR EACH NARE SCH (07:44)
[2018-03-05] MEDS: ASPIRIN EC 81 MG TABEC PO SCH (07:45)
[2018-03-05] MEDS: FLUTICASONE PROPIONATE 44 MCG/ACT 10.6 GM INHALER INH SCH (07:46)
--- NOTE | 2018-03-05 08:51 | HHI.PR ---
Subjective Remarks Follow-up COPD and deconditioning. Feels much better states she is ready to go home Objective Vitals Vital Signs Date Time Temp Pulse Resp B/P (MAP) Pulse Ox O2 Delivery O2 Flow Rate FiO2 03/05/18 07:44 97.7 98 20 108/64 (79) 96 03/05/18 05:04 97.5 79 18 96/52 (67) 94 03/05/18 00:49 98.2 77 18 114/63 (80) 94 03/04/18 21:12 Nasal Cannula 3.00 03/04/18 20:37 97.5 88 18 111/56 (74) 96 03/04/18 16:00 98.1 97 18 103/56 (72) 95 03/04/18 12:00 97.8 94 18 110/63 (79) 96 I/O 03/04/18 03/04/18 03/04/18 03/05/18 03/05/18 03/05/18 07:00 15:00 23:00 07:00 15:00 23:00 # Voids 1 # Bowel Movements 1 Result Diagram: 03/04/18 0621 Imaging Last Impressions Chest X-Ray 02/25/18 0000 Signed Impressions: Service Date/Time: Sunday, February 25, 2018 08:24 - CONCLUSION: Increased airspace opacity, likely consolidation, in the medial aspect of the right upper lobe. There is also likely some degree of volume loss in this area given the superior traction of the right hilum. Although nonspecific this could represent an infectious process in the appropriate clinical setting. Micheal Geiger MD Objective Remarks GENERAL: NAD, A&Ox3 HEAD: Normocephalic. NECK: Supple, trachea midline. No lymphadenopathy. EYES: No scleral icterus. No injection or drainage. CARDIOVASCULAR: Regular rate and rhythm without murmurs, gallops, or rubs. RESPIRATORY: Breath sounds equal bilaterally. No accessory muscle use. GASTROINTESTINAL: Abdomen soft, non-tender, nondistended. MUSCULOSKELETAL: No cyanosis, or edema. SKIN: Warm and dry. NEURO: No focal neurological deficits. Procedures NONE A/P Problem List: (1) COPD exacerbation ICD Code: J44.1 - Chronic obstructive pulmonary disease with (acute) exacerbation Status: Acute (2) Pneumonia ICD Code: J18.9 - Pneumonia Status: Acute Assessment and Plan 77-year-old female admitted secondary to COPD exacerbation with respiratory distress and hypoxia Diarrhea. Improved discontinued Aurea-Colace and continue probiotics. Follow- up C. difficile COPD exacerbation Acute respiratory distress Hypoxia Pneumonia Improved. Patient is now off BiPAP Continue to wean oxygen towards baseline Discontinue Augmentin and azithromycin patient already received at least 7 days of antibiotics cultures negative Continue incentive spirometry Continue duo nebs Wean prednisone to home dose. She is on chronic prednisone 10 mg daily Hypotension Resolved Generalized weakness. Improving Continue physical therapy Continue occupational therapy DVT prophylaxis Heparin Discharge Planning Stable for discharge Problem Qualifiers (1) Pneumonia: Qualified Codes: J18.1 - Lobar pneumonia, unspecified organism Vaibhav Roman MD March 05, 2018 08:51
[2018-03-05] MEDS ORDERED: predniSONE 20 MG TAB PO SCH (09:00)
--- NOTE | 2018-03-05 11:30 | HHI.PR ---
Subjective Remarks 77 YOWF with Severe COPD,Hypercapnoic RF Weaned to 3LNC Breathing better Alert, awake, family at BS Gets sob with any activity Feels stronger Ambulates Anxious to go home Objective Vital Signs Vital Signs Date Time Temp Pulse Resp B/P (MAP) Pulse Ox O2 Delivery O2 Flow Rate FiO2 03/05/18 07:44 97.7 98 20 108/64 (79) 96 03/05/18 05:04 97.5 79 18 96/52 (67) 94 03/05/18 00:49 98.2 77 18 114/63 (80) 94 03/04/18 21:12 Nasal Cannula 3.00 03/04/18 20:37 97.5 88 18 111/56 (74) 96 03/04/18 16:00 98.1 97 18 103/56 (72) 95 03/04/18 12:00 97.8 94 18 110/63 (79) 96 I/O 03/04/18 03/04/18 03/04/18 03/05/18 03/05/18 03/05/18 07:00 15:00 23:00 07:00 15:00 23:00 # Voids 1 # Bowel Movements 1 Result Diagram: 03/04/18 0621 Objective Remarks GENERAL: Frail elderly WF, mild sob SKIN: Warm and dry. HEAD: Normocephalic. EYES: No scleral icterus. No injection or drainage. NECK: Supple, trachea midline. No JVD or lymphadenopathy. CARDIOVASCULAR: Regular rate and rhythm without murmurs, gallops, or rubs. RESPIRATORY: Breath sounds equal bilaterally. No accessory muscle use. GASTROINTESTINAL: Abdomen soft, non-tender, nondistended. MUSCULOSKELETAL: No cyanosis, or edema. BACK: Nontender without obvious deformity. No CVA tenderness. A/P Assessment and Plan IMPRESSION: 1. Chronic obstructive pulmonary disease with exacerbation. 2. Hypercapnic respiratory failure. 3. Bronchitis. 4. Pneumonia. 5. Weight loss. PLAN: Aerosol nebs Prednisone 20 mg bid Supplement 02 SQ Heparin Stable from Pulm standpoint for Garrick Peng MD March 05, 2018 11:30
--- NOTE | 2018-03-05 17:54 | HHI.DS ---
Discharge Summary Admission Date Feb 25, 2018 at 10:09 Discharge Date: March 05, 2018 Admitting Diagnosis COPD Exacerbation; RUL PNA (1) COPD exacerbation ICD Code: J44.1 - Chronic obstructive pulmonary disease with (acute) exacerbation Diagnosis: Principal Status: Acute (2) Pneumonia ICD Code: J18.9 - Pneumonia Diagnosis: Principal Status: Acute Procedures NONE Brief History - From Admission 77-year-old female who presented to the emergency department because of shortness of breath. States she has been having difficulty breathing with wheezing associated with productive cough of whitish phlegm. She has history of COPD and uses scheduled nebulization every 4 hours. She is also on chronic prednisone. 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 She also has been started on Levaquin. In the emergency department she was in respiratory distress and was started on a BiPAP. She was also started on IV cefepime and vancomycin because of pneumonia seen on x-ray. Is she is seen in the ICU. States she is feeling slightly better. Denies fever, chills, chest pain, nausea and vomiting. all other systems reviewed negative CBC/BMP: 03/04/18 0621 Significant Findings Laboratory Tests Test 03/04/18 06:21 Creatinine 0.38 MG/DL (0.50-1.00) Imaging Last Impressions Chest X-Ray 02/25/18 0000 Signed Impressions: Service Date/Time: Sunday, February 25, 2018 08:24 - CONCLUSION: Increased airspace opacity, likely consolidation, in the medial aspect of the right upper lobe. There is also likely some degree of volume loss in this area given the superior traction of the right hilum. Although nonspecific this could represent an infectious process in the appropriate clinical setting. Micheal Geiger MD PE at Discharge GENERAL: NAD, A&Ox3 HEAD: Normocephalic. NECK: Supple, trachea midline. No lymphadenopathy. EYES: No scleral icterus. No injection or drainage. CARDIOVASCULAR: Regular rate and rhythm without murmurs, gallops, or rubs. RESPIRATORY: Breath sounds equal bilaterally. No accessory muscle use. GASTROINTESTINAL: Abdomen soft, non-tender, nondistended. MUSCULOSKELETAL: No cyanosis, or edema. SKIN: Warm and dry. NEURO: No focal neurological deficits. Hospital Course 77-year-old female admitted secondary to COPD exacerbation with respiratory distress and hypoxia Diarrhea. Improved discontinued Aurea-Colace and continue probiotics. Follow- up C. difficile COPD exacerbation Acute respiratory distress Hypoxia Pneumonia Improved. Patient is now off BiPAP Continue to wean oxygen towards baseline Discontinue Augmentin and azithromycin patient already received at least 7 days of antibiotics cultures negative Continue incentive spirometry Continue duo nebs Wean prednisone to home dose. She is on chronic prednisone 10 mg daily Hypotension Resolved Generalized weakness. Improving Continue physical therapy Continue occupational therapy DVT prophylaxis Heparin Pt Condition on Discharge: Stable Discharge Disposition: Discharge Home Discharge Time: > 30 minutes Discharge Instructions DIET: Follow Instructions for: As Tolerated, No Restrictions Activities you can perform: Regular-No Restrictions Activities to Avoid: Driving Follow up Referrals: Appointment for Follow Up @ pulmonology PCP Follow-up - 1 Week PCP Follow-up Pulmonology - 1 Week New Orders: X-RAY CHEST PA & LAT - 6 Weeks Continued Medications: Albuterol 18 GM Inh (Ventolin Hfa 18 GM Inh) 90 Mcg/Act Aer 2 PUFF INH Q6H PRN for SHORTNESS OF BREATH, #1 INHALER 0 Refills Albuterol Neb (Albuterol Neb) 2.5 Mg/3 Ml Neb 2.5 MG NEB Q6HR NEB PRN for SHORTNESS OF BREATH, #60 NEBULE 0 Refills While awake Aspirin DR (Aspirin EC) 81 Mg Tabdr 81 MG PO DAILY, TAB 0 Refills Ergocalciferol (Ergocalciferol) 50,000 Unit Cap 03614 UNITS PO SUNDAY for Nutritional Supplement, #30 CAP 0 Refills Fluticasone 10.6 GM Inh (Flovent Hfa 10.6 GM Inh) 44 Mcg/Act Inh 2 PUFF INH BID for Asthma Management, #1 INHALER 0 Refills Use daily at the same time. Guaifenesin (Eq Mucus ER) 600 Mg Tab 600 MG PO BID PRN for COUGH Prednisone (Prednisone) 10 Mg Tab 10 MG PO DAILY for BRONCOSPASM, TAB 0 Refills Vaibhav Roman MD March 05, 2018 17:54
== END 2018-03-05 13:10 | disposition home or self-care (01) | DRG 871 ==
LOC: NEPE 07:59 → NEDA 10:09 → HIMW 14:55 → HIMN 23:00 → N05B 02-28 03:07
PROVIDERS: ADMIT Internal Medicine; ATTEND Internal Medicine
PROC: 5A09457 Assistance with Respiratory Ventilation, 24-96 Consecutive Hours, Continuous Positive Airway Pressure (ICD-10-PCS; principal; 2018-02-25)
DX: A41.9 Sepsis, unspecified organism (principal); J18.9 Pneumonia, unspecified organism; J96.01 Acute respiratory failure with hypoxia; J96.02 Acute respiratory failure with hypercapnia; Z99.81 Dependence on supplemental oxygen; J47.0 Bronchiectasis with acute lower respiratory infection; J47.1 Bronchiectasis with (acute) exacerbation; Z68.1 Body mass index [BMI] 19.9 or less, adult; M15.9 Polyosteoarthritis, unspecified; K21.9 Gastro-esophageal reflux disease without esophagitis; I10 Essential (primary) hypertension; R63.4 Abnormal weight loss; R19.7 Diarrhea, unspecified; Z22.322 Carrier or suspected carrier of Methicillin resistant Staphylococcus aureus; Z85.828 Personal history of other malignant neoplasm of skin; Z87.891 Personal history of nicotine dependence; Z88.1 Allergy status to other antibiotic agents; Z88.5 Allergy status to narcotic agent; Z88.6 Allergy status to analgesic agent
CPT/HCPCS: 36600; 71045; 80048; 80053; 80202; 82550; 82565; 82805; 83036; 83605; 83735; 84100; 84439; 84443; 84484; 85025; 87040; 87070; 87205; 87641; 93005; 94002; 94003; 94150; 94640; 94664; 96361; 96374; 96375; J0692; J1644; J2543; J2930; J3370; J7030; J7050; J7512; J7613

== ENCOUNTER 2018-06-23 23:15 | Inpatient (IN) ==
[2018-06-23] MEDS ORDERED: MethylPREDNISolone Sod Succinate Inj 125 MG/2 ML Vial IV.PUSH ONE (23:44)
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
--- NOTE | 2018-06-24 00:13 | XR ---
EXAM DATE: 06/24/2018 12:06 AM EDT AGE/SEX: 77 years / Female INDICATIONS: Increasing demand on oxygen for COPD related shortness of breath. CLINICAL DATA: This is the patient's initial encounter. Patient reports that signs and symptoms have been present for 1 week and indicates a pain score of 0/10. MEDICAL/SURGICAL HISTORY: Chronic obstructive pulmonary disease. Cardiovascular disease. Coron raudel artery stent. COMPARISON: [facility] [place] CHEST W CONTRAST, 06/02/2018. . FINDINGS: Hyperexpanded lungs with right greater than left apical scarring again noted. No perceptible acute in filtrate. The numerous small nodular opacities seen on the recent CT are not clearly reproduced on th e portable x-ray. No pleural effusion. No pneumothorax. Heart size stable, within normal limits. Very tortuous thoracic aorta again seen. CONCLUSION: Hyperexpanded lungs and right greater than left biapical scarring. No perceptible acute infiltrate. Electronically signed by: Micheal Connolly MD 06/24/2018 12:11 AM EDT
[2018-06-24 00:40] LABS: Baso % (Auto) 0.7 % (0.0-2.0); Eos # (Auto) 0.2 th/mm3 (0.0-0.4); Eos % (Auto) 3.8 % (0.0-4.0); Hematocrit 40.1 % (35.0-46.0); Hemoglobin 13.6 gm/dL (11.6-15.3); Lymph % (Auto) 16.7 % (9.0-44.0); Mean Corpuscular HGB Conc 33.9 % (32.0-36.0); Mean Corpuscular Hemoglobin 30.6 pg (27.0-34.0); Mean Corpuscular Volume 90.2 fL (80.0-100.0); Mean Platelet Volume 9.6 fL (7.0-11.0); Mono # (Auto) 0.6 th/mm3 (0.0-0.9); Mono % (Auto) 9.9 % (0.0-8.0); Neut # (Auto) 4.1 th/mm3 (1.8-7.7); Neut % (Auto) 68.9 % (16.0-70.0); Platelet Count 177 th/mm3 (150-450); Red Blood Count 4.44 mil/mm3 (4.00-5.30)
[2018-06-24 00:47] LABS: Activated Partial Thrombo Time 23.6 sec (24.3-30.1); Prothrombin Time 10.3 sec (9.8-11.6)
[2018-06-24 01:00] LABS: Alanine Aminotransferase 17 U/L (10-53); Albumin 3.4 g/dL (3.4-5.0); Anion Gap 5 meq/L (5-15); Aspartate Aminotransferase 17 U/L (15-37); Blood Urea Nitrogen 13 mg/dL (7-18); Calcium 8.3 mg/dL (8.5-10.1); Carbon Dioxide 37.4 meq/L (21.0-32.0); Chloride 104 meq/L (98-107); Glomerular Filtration Rate Greater Than 89 mL/min (>89); Glucose,Random 109 mg/dL (74-106); Potassium 4.3 meq/L (3.5-5.1); Sodium 146 meq/L (136-145)
[2018-06-24 01:02] LABS: Alkaline Phosphatase 131 U/L (45-117); Total Protein 6.6 g/dL (6.4-8.2)
[2018-06-24] MEDS ORDERED: Bisacodyl 10 MG Supp RECTAL PRN (03:47)
[2018-06-24] MEDS ORDERED: Sodium Chlor 0.9% Inj 500 ML IV.SIG SCH (04:00)
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
[2018-06-24 05:53] LABS: ABG Base Excess 8.8 mmol/L (-2-2); ABG PCO2 63 mmHg (38-42); ABG PO2 81 mmHg (61-120)
[2018-06-24] MEDS: MethylPREDNISolone Sod Succinate Inj 40 MG/ML Vial IV.PUSH SCH ×3 (05:56→17:02)
[2018-06-24 06:45] LABS: Magnesium 2.2 mg/dL (1.5-2.5)
[2018-06-24] MEDS: Budesonide-Formoterol 160/4.5 MCG 6 GM Inhaler INH SCH ×2 (10:08→20:56)
[2018-06-24] MEDS: Senna/Docusate Sodium 8.6/50 MG Tablet PO SCH ×2 (10:08→20:55)
[2018-06-24] MEDS: guaiFENesin 600 MG ER Tablet PO SCH ×2 (10:08→20:55)
--- NOTE | 2018-06-24 12:02 | ECG ---
Date Performed: 06/23/2018 Time Performed: 23:34:44 PTAGE: 77 years EKG: Sinus rhythm OLD INFERIOR MYOCARDIAL INFARCTION ABNORMAL ECG Since the PREVIOUS TRACING , no significant change noted DOCTOR: Aldair Goldberg Interpretating Date/Time 06/24/2018 12:00:44
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
[2018-06-24] MEDS: Famotidine 20 MG Tablet PO SCH ×2 (13:26→20:55)
[2018-06-24] MEDS: Heparin - SQ 10,000 UNITS/ML Vial SQ SCH (20:54)
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
[2018-06-25] MEDS: MethylPREDNISolone Sod Succinate Inj 40 MG/ML Vial IV.PUSH SCH ×5 (00:47→23:29)
[2018-06-25 06:42] LABS: Alanine Aminotransferase 13 U/L (10-53); Albumin 3.1 g/dL (3.4-5.0); Anion Gap 7 meq/L (5-15); Blood Urea Nitrogen 18 mg/dL (7-18); Calcium 8.4 mg/dL (8.5-10.1); Carbon Dioxide 34.6 meq/L (21.0-32.0); Chloride 102 meq/L (98-107); Glucose,Random 119 mg/dL (74-106); Magnesium 2.1 mg/dL (1.5-2.5); Phosphorus 3.6 mg/dL (2.5-4.9); Potassium 4.5 meq/L (3.5-5.1); Sodium 144 meq/L (136-145)
[2018-06-25 06:43] LABS: Aspartate Aminotransferase 10 U/L (15-37); Glomerular Filtration Rate Greater Than 89 mL/min (>89)
[2018-06-25 06:45] LABS: Alkaline Phosphatase 114 U/L (45-117); Free T4 (Free Thyroxine) 1.02 ng/dL (0.76-1.46); Total Protein 6.1 g/dL (6.4-8.2)
[2018-06-25] MEDS: Famotidine 20 MG Tablet PO SCH ×2 (08:08→20:01)
[2018-06-25] MEDS: Budesonide-Formoterol 160/4.5 MCG 6 GM Inhaler INH SCH ×2 (08:09→20:04)
[2018-06-25] MEDS: Senna/Docusate Sodium 8.6/50 MG Tablet PO SCH ×2 (08:09→20:04)
[2018-06-25] MEDS: guaiFENesin 600 MG ER Tablet PO SCH ×2 (08:09→20:01)
[2018-06-25] MEDS: Heparin - SQ 10,000 UNITS/ML Vial SQ SCH ×2 (08:09→20:01)
[2018-06-25 08:29] LABS: Baso % (Auto) 0.1 % (0.0-2.0); Lymph # (Auto) 0.4 th/mm3 (1.0-4.8); Lymph % (Auto) 6.4 % (9.0-44.0); Mean Corpuscular HGB Conc 32.6 % (32.0-36.0); Mean Corpuscular Hemoglobin 29.5 pg (27.0-34.0); Mean Corpuscular Volume 90.5 fL (80.0-100.0); Mean Platelet Volume 9.9 fL (7.0-11.0); Mono # (Auto) 0.1 th/mm3 (0.0-0.9); Mono % (Auto) 2.5 % (0.0-8.0); Neut # (Auto) 5.1 th/mm3 (1.8-7.7); Platelet Count 167 th/mm3 (150-450); Red Blood Count 4.09 mil/mm3 (4.00-5.30); Red Cell Distribution Width 14.2 % (11.6-17.2); White Blood Count 5.6 th/mm3 (4.0-11.0)
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
--- NOTE | 2018-06-25 14:52 | ECHRPT ---
Indication: HHD CONCLUSIONS The left ventricular systolic function is normal with an estimated ejection fraction in the range of 55-60%. Doppler parameters are consistent with impaired left ventricular relaxtion (grade 1 diastolic dysfun ction). Posterior mitral valve leaflet appears to buckle, but does not prolapse. Trace mitral valve regurgitation. Mild aortic valve regurgitation. There is mild tricuspid valve regurgitation. BP: / HR: Rhythm: MEASUREMENTS (Male / Female) Normal Values Technical Quality: 2D ECHO LV Diastolic Diameter PLAX 4.4 cm 4.2 - 5.9 / 3.9 - 5.3 cm LV Systolic Diameter PLAX 2.9 cm IVS Diastolic Thickness 1.1 cm 0.6 - 1.0 / 0.6 - 0.9 cm LVPW Diastolic Thickness 1.1 cm 0.6 - 1.0 / 0.6 - 0.9 cm LV Relative Wall Thickness 0.5 LVOT Diameter 2.1 cm LA Systolic Diameter LX 2.4 cm 3.0 - 4.0 / 2.7 - 3.8 cm M-MODE AV Cusp Separation MM 2.0 cm DOPPLER AV Peak Velocity 141.0 cm/s AV Peak Gradient 8.0 mmHg AI Peak Velocity 382.7 cm/s AI Peak Gradient 58.6 mmHg AI Pressure Half Time 475.7 ms LVOT Peak Velocity 121.0 cm/s LVOT Peak Gradient 5.9 mmHg AV Area Cont Eq pk 3.0 cm Mitral E Point Velocity 59.7 cm/s Mitral A Point Velocity 91.8 cm/s Mitral E to A Ratio 0.7 LV E' Lateral Velocity 7.5 cm/s Mitral E to LV E' Lateral Ratio 7.9 LV E' Septal Velocity 5.6 cm/s Mitral E to LV E' Septal Ratio 10.7 TV Peak Velocity 265.0 cm/s Right Atrial Pressure 10.0 mmHg PV Peak Velocity 134.0 cm/s PV Peak Gradient 7.2 mmHg FINDINGS LEFT VENTRICLE Normal left ventricular size. Wall thickness is normal. The left ventricular systolic function is normal with an estimated ejection fraction in the range of 55-60% Doppler parameters are consistent with impaired left ventricular relaxtion (grade 1 diastolic dysfun ction). RIGHT VENTRICLE Normal right ventricular size and systolic function. LEFT ATRIUM The left atrial size is normal. RIGHT ATRIUM The right atrial size is normal. ATRIAL SEPTUM Normal atrial septal thickness without atrial level shunting by limited color doppler interrogation. AORTA The aortic root and proximal ascending aorta are normal in size on limited imaging. MITRAL VALVE Mitral annular calcification is present. Mild thickening of the mitral valve leaflets. Trace mitral valve regurgitation. Posterior mitral valve leaflet appears to buckle, but does not prolapse. AORTIC VALVE Aortic valve sclerosis is present. Mild aortic valve regurgitation. No aortic valve stenosis. TRICUSPID VALVE Structurally normal tricuspid valve. There is mild tricuspid valve regurgitation. No tricuspid valve stenosis. The estimated pulmonary arterial pressure is 28 mmHg. PULMONARY VALVE Trivial pulmonary valve regurgitation. The pulmonary valve is not well visualized. VESSELS The inferior vena cava is normal in size. PERICARDIUM No pericardial effusion. Bi Adame DO (Electronically Signed) Final Date:25 June 2018 14:51
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
[2018-06-26] MEDS: MethylPREDNISolone Sod Succinate Inj 40 MG/ML Vial IV.PUSH SCH ×4 (06:00→23:29)
[2018-06-26 06:41] LABS: Hematocrit 34.9 % (35.0-46.0); Hemoglobin 11.7 gm/dL (11.6-15.3); Lymph # (Auto) 0.5 th/mm3 (1.0-4.8); Mean Corpuscular HGB Conc 33.5 % (32.0-36.0); Mean Corpuscular Hemoglobin 29.6 pg (27.0-34.0); Mean Corpuscular Volume 88.5 fL (80.0-100.0); Mean Platelet Volume 9.6 fL (7.0-11.0); Mono # (Auto) 0.4 th/mm3 (0.0-0.9); Mono % (Auto) 5.6 % (0.0-8.0); Neut # (Auto) 6.6 th/mm3 (1.8-7.7); Neut % (Auto) 88.4 % (16.0-70.0); Platelet Count 143 th/mm3 (150-450); Red Blood Count 3.95 mil/mm3 (4.00-5.30); Red Cell Distribution Width 14.3 % (11.6-17.2); White Blood Count 7.5 th/mm3 (4.0-11.0)
[2018-06-26 07:04] LABS: Alanine Aminotransferase 17 U/L (10-53); Albumin 3.1 g/dL (3.4-5.0); Alkaline Phosphatase 96 U/L (45-117); Anion Gap 6 meq/L (5-15); Aspartate Aminotransferase 20 U/L (15-37); Blood Urea Nitrogen 25 mg/dL (7-18); Calcium 8.5 mg/dL (8.5-10.1); Carbon Dioxide 33.6 meq/L (21.0-32.0); Chloride 102 meq/L (98-107); Glomerular Filtration Rate Greater Than 89 mL/min (>89); Glucose,Random 105 mg/dL (74-106); Magnesium 2.2 mg/dL (1.5-2.5); Phosphorus 3.6 mg/dL (2.5-4.9); Potassium 4.4 meq/L (3.5-5.1); Sodium 142 meq/L (136-145); Total Protein 5.8 g/dL (6.4-8.2)
[2018-06-26] MEDS: Senna/Docusate Sodium 8.6/50 MG Tablet PO SCH (09:04)
[2018-06-26] MEDS: Heparin - SQ 10,000 UNITS/ML Vial SQ SCH ×2 (09:20→20:22)
[2018-06-26] MEDS: guaiFENesin 600 MG ER Tablet PO SCH ×2 (09:20→20:23)
[2018-06-26] MEDS: Famotidine 20 MG Tablet PO SCH ×2 (09:20→20:23)
[2018-06-26] MEDS: Budesonide-Formoterol 160/4.5 MCG 6 GM Inhaler INH SCH ×2 (09:21→20:25)
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
[2018-06-27] MEDS: MethylPREDNISolone Sod Succinate Inj 40 MG/ML Vial IV.PUSH SCH ×2 (05:23→13:45)
[2018-06-27] MEDS: Famotidine 20 MG Tablet PO SCH ×2 (09:06→20:51)
[2018-06-27] MEDS: Budesonide-Formoterol 160/4.5 MCG 6 GM Inhaler INH SCH ×2 (09:06→20:53)
[2018-06-27] MEDS: Tiotropium Bromide 18 MCG/ACT Inhaler INH SCH (09:07)
[2018-06-27] MEDS: Heparin - SQ 10,000 UNITS/ML Vial SQ SCH ×2 (09:07→20:51)
[2018-06-27] MEDS: guaiFENesin 600 MG ER Tablet PO SCH ×2 (09:07→20:51)
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
[2018-06-27] MEDS: predniSONE 10 MG Tablet PO SCH (17:06)
[2018-06-28] MEDS: Tiotropium Bromide 18 MCG/ACT Inhaler INH SCH (09:49)
[2018-06-28] MEDS: guaiFENesin 600 MG ER Tablet PO SCH (09:50)
[2018-06-28] MEDS: Famotidine 20 MG Tablet PO SCH (09:50)
[2018-06-28] MEDS: Budesonide-Formoterol 160/4.5 MCG 6 GM Inhaler INH SCH (09:50)
[2018-06-28] MEDS: Heparin - SQ 10,000 UNITS/ML Vial SQ SCH (09:50)
[2018-06-28] MEDS: predniSONE 10 MG Tablet PO SCH ×3 (09:50→17:01)
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
--- NOTE | 2018-06-28 14:56 | P.DCO ---
- Physical Therapy Order: Evaluate and treat - Home Health Nursing Order: Signs/symptoms of disease process - Certification I have seen patient Christina Coombs on 06/28/18. My clinical findings support the need for the requested home health care services because: Limited mobility due to disease progression, Patient has SOB, Deconditioned with increased weakness I certify that my clinical findings support that this patient is homebound because: Hx COPD - exertion dyspnea/weakness, Poor cardiac reserve
[2018-06-28 15:55] VITALS: BP 91/57; PULSE 86; RESP 14; TEMP 98; O2SAT 96
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
== END 2018-06-28 19:13 ==
LOC: NEPC 23:15 → NEDA 06-24 03:43 → NEPGCP 06-24 09:33 → HCIS 06-25 14:40
PROVIDERS: ADMIT Hospitalist; ATTEND Hospitalist